=== PATIENT | male | born 1955 | race Caucasian/White ===

== ENCOUNTER 2018-11-02 16:33 | Inpatient (IN) | payer MEDICAID ==
[~2018-11-02] VITALS: Ht 188 cm; Wt 148.0 kg
[2018-11-02] MEDS ORDERED: ASPI-817 PO (17:47)
[2018-11-02] MEDS ORDERED: ONDANSETRON 4 MG INJ IV PRN (18:30)
[2018-11-02] MEDS ORDERED: ACETAMINOPHEN 325 MG TAB PO PRN ×2 (18:30→20:00)
[2018-11-02] MEDS ORDERED: ASPIRIN 325 MG TAB PO ONE (18:30)
--- NOTE | 2018-11-02 18:52 | ERD ---
ER Documentation Chief Complaint Chief Complaint headache x3 days, slow to understand & follow iinstructions HPI Patient is a 63-year-old male with cardiac disease who presents with confusion. Please note the history and physical exam is limited secondary to the patient's confusion and memory of what happened. The patient said that he started with a headache on Friday night and has had word finding difficulty since. His friend says that this is true. He is moving all 4 extremities. He has no slurred speech. He has had no treatment as of yet. He does not currently have a primary doctor. ROS All systems reviewed and are negative except as per history of present illness. Medications Home Meds Reported Medications Aspirin* (Aspirin* EC) 81 Mg Tablet.dr, 81 MG PO DAILY, TAB NEEDED 11/02/18 Allergies Allergies: Coded Allergies: No Known Allergy (Unverified , 11/02/18) PMhx/Soc Positive for coronary artery disease FmHx Family History: diabetes Physical Exam Vitals Vital Signs Date Temp Pulse Resp B/P (MAP) Pulse Ox O2 O2 Flow FiO2 Time Delivery Rate 11/02/18 98.5 88 18 186/94 98 16:44 (124) Physical Exam Const: No acute distress Head: Atraumatic Eyes: Normal Conjunctiva ENT: Normal External Ears, Nose and Mouth. Neck: Full range of motion. No meningismus. Resp: Clear to auscultation bilaterally Cardio: Regular rate and rhythm, no murmurs Abd: Soft, non tender, non distended. Normal bowel sounds Skin: No petechiae or rashes Back: No midline or flank tenderness Ext: No cyanosis, or edema Neur: Awake and alert, word finding difficulty but no slurred speech, strength is 5 out of 5 in all 4 extremities, cranial nerves II through XII are intact Result Diagram: 11/02/18 1706 11/02/18 1706 Results 24 hrs Laboratory Tests Test 11/02/18 17:06 11/02/18 17:30 White Blood Count 8.5 10^3/ul Red Blood Count 5.23 10^6/ul Hemoglobin 15.3 g/dl Hematocrit 46.6 % Mean Corpuscular Volume 89.1 fl Mean Corpuscular Hemoglobin 29.3 pg Mean Corpuscular Hemoglobin Concent 32.8 g/dl Red Cell Distribution Width 12.0 % Platelet Count 223 10^3/UL Mean Platelet Volume 9.2 fl Immature Granulocytes % 0.500 % Neutrophils % 54.2 % Lymphocytes % 31.1 % Monocytes % 10.0 % Eosinophils % 3.0 % Basophils % 1.2 % Nucleated Red Blood Cells % 0.0 /100WBC Immature Granulocytes # 0.040 10^3/ul Neutrophils # 4.6 10^3/ul Lymphocytes # 2.6 10^3/ul Monocytes # 0.9 10^3/ul Eosinophils # 0.3 10^3/ul Basophils # 0.1 10^3/ul Nucleated Red Blood Cells # 0.0 10^3/ul Prothrombin Time 13.2 Sec Prothrombin Time Ratio 1.0 INR International Normalized Ratio 0.99 Activated Partial Thromboplast Time 26.1 Sec Sodium Level 137 mmol/L Potassium Level 4.2 mmol/L Chloride Level 103 mmol/L Carbon Dioxide Level 26 mmol/L Anion Gap 8 Blood Urea Nitrogen 13 mg/dl Creatinine 0.80 mg/dl Est Glomerular Filtrat Rate mL/min > 60 mL/min Glucose Level 301 mg/dl Hemoglobin A1c 12.5 % Calcium Level 9.3 mg/dl Troponin I < 0.012 ng/ml Triglycerides Level 134 mg/dl Cholesterol Level 179 mg/dl LDL Cholesterol, Calculated 111 mg/dl HDL Cholesterol 41 mg/dl Cholesterol/HDL Ratio 4.3 RATIO Urine Color LISA Urine Clarity SLIGHTLY CLOUDY Urine pH 5.0 Urine Specific [place] 1.029 Urine Ketones TRACE mg/dL Urine Nitrite NEGATIVE mg/dL Urine Bilirubin NEGATIVE mg/dL Urine Urobilinogen NEGATIVE mg/dL Urine Leukocyte Esterase NEGATIVE Indra/ul Urine Microscopic RBC 3 /HPF Urine Microscopic WBC 7 /HPF Urine Squamous Epithelial Cells FEW /HPF Urine Bacteria FEW /HPF Urine Mucus MANY /HPF Urine Hemoglobin NEGATIVE mg/dL Urine Glucose 3+ mg/dL Urine Total Protein 2+ mg/dl Current Medications Medications Dose Sig/Sherly Start Time Status Last (Trade) Ordered Route PRN Stop Time Admin Dose Reason Admin Aspirin 325 mg ONCE ONCE 11/02/18 DC 11/02/18 (Aspirin) PO 18:30 18:43 11/02/18 18:31 Ondansetron 4 mg ER BRIDGE 11/02/18 HCl (Zofran PRN IV 18:30 Inj) NAUSEA/VOMITI 11/03/18 18:29 NG 650 mg ER BRIDGE 11/02/18 Acetaminophen PRN PO 18:30 (Tylenol .MILD PAIN 11/03/18 18:29 Tab) 1-3 OR TEMP Procedures/MDM CT brain shows stroke per radiology. Chest x-ray read by radiology. EKG read by me: Rate/Rhythm: Regular rate and rhythm at a normal rate Intervals: Normal Impression: No evidence of ischemia or arrhythmia Smoking Cessation Therapy: Pt. was lectured for greater than 3 minutes on the health risks of continued smoking and the benefits of cessation. Patient is a 63-year-old male presents with word finding difficulties. I was concerned for acute stroke. The patient is outside window for TPA or mechanical retrieval as the symptoms started 3 days ago on Friday. The patient had a CT scan which showed stroke. The patient will be given aspirin after he passes a swallow evaluation and NIH stroke scale was done by nursing. The patient will be admitted to the care of Dr. Castaneda to a telemetry bed. Departure Diagnosis: Primary Impression: Stroke CVA mechanism: unspecified Qualified Codes: I63.9 - Cerebral infarction, unspecified Additional Impression: Headache Headache type: unspecified Headache chronicity pattern: acute headache Intractability: not intractable Qualified Codes: R51 - Headache Condition: Serious RAQUEL RICO MD Nov 02, 2018 18:52
[2018-11-02] MEDS ORDERED: ONDANSETRON 4 MG TAB PO PRN (20:00)
[2018-11-02] MEDS ORDERED: DOCUSATE SODIUM 100 MG CAP PO PRN (20:00)
[2018-11-02] MEDS ORDERED: LISINOPRIL 20 MG TAB PO ONE (20:00)
[2018-11-02] MEDS ORDERED: BISACODYL (EC) 5 MG TAB PO PRN (20:00)
[2018-11-02] MEDS ORDERED: INSULIN GLARGINE [LANTus] (100 UNITS/ML) SYG SC ONE (20:00)
[2018-11-02] MEDS ORDERED: NACL 0.9% 3 ML SYG IV SCH (20:00)
[2018-11-02] MEDS: ATORVASTATIN 80 MG TAB PO SCH (21:20)
--- NOTE | 2018-11-02 22:29 | HP ---
Date/Time of Note Date/Time of Note DATE: 11/02/18 TIME: 22:28 Assessment/Plan VTE Prophylaxis SCD applied (from Nsg): Yes Pharmacological prophylaxis: NA/contraindicated Pharm contraindication: low risk/ambulating Assessment/Plan Hospital Course This is a 63-year-old male being admitted to the telemetry floor for: #1 subacute CVA:Subacute appearing left temporal - parietal nonhemorrhagic infarct with slight mass effect on the left lateral ventricle. Patient given aspirin, continue aspirin. Neurochecks every 4 hours. Given that the symptoms have occurred more than 24 hours ago we will control patient's blood pressure, will start the patient on lisinopril given his concurrent diabetes. Monitor patient blood pressures. Hemoglobin A1c is 12.5. Start the patient on high- dose statin. PT OT speech evaluation. Bedside swallow eval, carbohydrate diet if passes swallow eval. Will check the MRI of the brain and MRA of the head neck. Echocardiogram with bubble study. Check lipid panel, TSH consult maureen rology . Urine drug screen negative. #2 uncontrolled diabetes mellitus: The patient has hemoglobin A1c of 12.5. Will initiate weight-based moderate dosing of Lantus along with insulin sliding scale. Will start lisinopril patient's concurrent elevated blood pressures and likely hypertension. Metformin initiation likely prior to discharge. #3 elevated blood pressures: Likely underlying untreated hypertension. We will initiate the patient on lisinopril, PRN hydralazine. Monitor blood pressures. No need for permissive hypertension at the current time given the patient's symptoms greater than 24 hours. #4 morbid obesity: Hemoglobin A1c 12.5, check lipid panel, TSH #5 DVT GI prophylaxis: SCDs, no GI prophylaxis indicated Further treatment strategy will be implemented as per the clinical course. Result Diagram: 11/02/18 1706 11/02/18 1706 Results 24hrs Laboratory Tests Test 11/02/18 17:06 11/02/18 17:30 11/02/18 18:53 11/02/18 21:59 White Blood Count 8.5 Red Blood Count 5.23 Hemoglobin 15.3 Hematocrit 46.6 Mean Corpuscular 89.1 Volume Mean Corpuscular 29.3 Hemoglobin Mean Corpuscular 32.8 Hemoglobin Concen t Red Cell 12.0 Distribution Width Platelet Count 223 Mean Platelet 9.2 Volume Immature 0.500 H Granulocytes % Neutrophils % 54.2 Lymphocytes % 31.1 Monocytes % 10.0 Eosinophils % 3.0 Basophils % 1.2 Nucleated Red 0.0 Blood Cells % Immature 0.040 H Granulocytes # Neutrophils # 4.6 Lymphocytes # 2.6 Monocytes # 0.9 Eosinophils # 0.3 Basophils # 0.1 Nucleated Red 0.0 Blood Cells # Prothrombin Time 13.2 Prothrombin Time 1.0 Ratio INR International 0.99 Normalized Ratio Activated 26.1 Partial Thrombopl ast Time Sodium Level 137 Potassium Level 4.2 Chloride Level 103 Carbon Dioxide 26 Level Anion Gap 8 Blood Urea 13 Nitrogen Creatinine 0.80 Est Glomerular > 60 Filtrat Rate mL/min Glucose Level 301 H Hemoglobin A1c 12.5 H Calcium Level 9.3 Troponin I < 0.012 Triglycerides 134 Level Cholesterol Level 179 LDL Cholesterol, 111 Calculated HDL Cholesterol 41 Cholesterol/HDL 4.3 Ratio Urine Color LISA Urine Clarity SLIGHTLY CLOUDY A Urine pH 5.0 Urine Specific 1.029 [place] Urine Ketones TRACE A Urine Nitrite NEGATIVE Urine Bilirubin NEGATIVE Urine NEGATIVE Urobilinogen Urine Leukocyte NEGATIVE Esterase Urine Microscopic 3 RBC Urine Microscopic 7 H WBC Urine Squamous FEW Epithelial Cells Urine Bacteria FEW A Urine Mucus MANY A Urine Hemoglobin NEGATIVE Urine Glucose 3+ H Urine Total 2+ H Protein Urine Opiates NEGATIVE Screen Urine NEGATIVE Barbiturates Urine NEGATIVE Amphetamines Screen Urine NEGATIVE Benzodiazepines Screen Urine Cocaine NEGATIVE Screen Urine NEGATIVE Cannabinoids Bedside Glucose 301 H 265 H HPI/ROS Admit Date/Time Admit Date/Time Hx of Present Illness Chief complaint: Confusion, difficulty with speech Following history was obtained from the ED physician documentation, the RN and partially from the patient is a patient himself was not able to fully make sense of what he was seen. This is a 63-year-old male with cardiac disease who presents with confusion. The patient said that he started with a headache on Friday night and has had word finding difficulty since. His friend also presented with him to the ER who also stated that this was true. Patient is seen moving all 4 extremities, he does not display any slurred speech however his speech comprehension is affected. He is alert and oriented x2, he is able to state his name and his birthdate though he is slow to give these answers. Allergies: NKDA Medications: Aspirin ROS Const: As per HPI Eyes : No pain discharge or redness or change in visual acuity ENT: No pain, sore throat, congestion, congestion, dysphagia or discharge Respiratory: No shortness of breath, cough, sputum, wheezing, or pleuritic pain Cardiovascular: No chest pain, palpitation, PND, or edema GI : no change in appetite, abdominal pain, nausea, vomiting, diarrhea, constipation, or change in the color his stool Genitourinary: No dysuria, hematuria, flank pain , discharge or CVA tenderness Musculoskeletal: No joint pain, back pain, neck pain, restricted range of motion in neck or joints Skin: No rash, bruising or hives Neuro: As per HPI Endocrine: No polyuria, polydipsia, temperature intolerance Psych: No hallucination, depression, anxiety or suicidal ideation PMH/Family/Social Past Medical History Coronary artery disease Medications Current Medications IV Flush (NS 3 ml) 3 ml PER PROTOCOL IV ; Start 11/02/18 at 20:00 Ondansetron HCl (Zofran Tab) 4 mg Q6H PRN PO NAUSEA/VOMITING; Start 11/02/18 at 20:00 Acetaminophen (Tylenol Tab) 650 mg Q6H PRN PO .PAIN 1-3 OR TEMP; Start 11/02/18 at 20:00 Docusate Sodium (Colace) 100 mg Q12H PRN PO .CONSTIPATION; Start 11/02/18 at 20:00 Bisacodyl (Dulcolax) 5 mg DAILY PRN PO .CONSTIPATION; Start 11/02/18 at 20:00 Atorvastatin Calcium (Lipitor) 80 mg HS PO Last administered on 11/02/18at 21: 20; Admin Dose 80 MG; Start 11/02/18 at 21:00 Lisinopril (Zestril) 20 mg DAILY PO ; Start 11/03/18 at 09:00 Insulin Glargine (Lantus) 29 units DAILY@0800 SC ; Start 11/03/18 at 20:00 Coded Allergies: No Known Allergy (Unverified , 11/02/18) Past Surgical History Cardiac stent x3 Family History Significant Family History: no pertinent family hx Social History Alcohol Use: none Smoking Status: Current some day smoker Drug Use: none Exam/Review of Systems Vital Signs Vitals Vital Signs Date Temp Pulse Resp B/P (MAP) Pulse Ox O2 O2 Flow FiO2 Time Delivery Rate 11/02/18 98.5 88 18 186/94 98 16:44 (124) Exam Exam General: Patient is a pleasant male currently lying in bed he does not appear to be in any acute distress, he does appear to be slow in giving responses as he is trying to find the words to say. HEENT: Atraumatic, normocephalic. The pupils are equal, round and reactive. Extraocular motor are intact Neck: Supple with full range of motion. No rigidity or meningismus Chest: Nontender Lungs: Clear to auscultation bilaterally no crackles rales or wheezing Heart: Normal S1-S2, Regular rhythm and rate. No murmur, S3, or S4 Abdomen: Morbidly obese, soft , nontender, nondistended , bowel sounds are present. No guarding no rebound tenderness , No masses or organomegaly. No costovertebral temporal angle mass Extremities: Normal to inspection, no edema no cyanosis Neurologic: Alert and oriented x2, speech is clear but impaired comprehension, cranial nerves II through XII intact, strength 5 out of 5 in bilateral upper and lower extremities Additional Comments PROCEDURE: CT Brain without IV contrast. CLINICAL INDICATION: Headache for 3 days. TECHNIQUE: A CT of the brain was performed on a multislice detector CT scanner utilizing axial sections from the skull base through the vertex without contrast. Images were reviewed on a high-resolution PACS workstation. Exam CTDlvol = 39 mGy-cm and DLP = 714 mGy-cm. One of the following 3 dose reduc tion techniques were used: Automated exposure control; adjustment of the mA and/or kV according to patient size; or use of iterative reconstruction technique. DICOM images are available. COMPARISON: None available FINDINGS: There is abnormal hypodensity and effacement of sulci involving the posterior left temporal parietal lobe consistent with a subacute non-hemorrhagic infarct. There is slight mass effect on the left lateral ventricle without midline shift. There is otherwise age appropriate central and peripheral atrophy. There is no midline shift. There is no intracranial hemorrhage or abnormal extra-axial fluid collection. Visualized paranasal sinuses are clear. IMPRESSION: Subacute appearing left temporal - parietal nonhemorrhagic infarct with slight mass effect on the left lateral ventricle. RP physician senior advocate requested to call report by the undersigned at 18:10. RPTAT: HMVK .Isidoro Perez MD, MD Date Time Electronically viewed and signed by .Isidoro Perez MD, MD on 11/02/2018 18:10 .K/ CC: RAQUEL RICO MD [phone] PROCEDURE: XR Chest. CLINICAL INDICATION: Possible stroke TECHNIQUE: Single frontal view of the chest was obtained COMPARISON: None FINDINGS: There is moderate elevation of the left hemidiaphragm with left lower lung volume loss. Evaluation of the size of the cardiac silhouette is limited due to poor visualization of the left heart border. There is appearance of mild enlargement of cardiac silhouette. Mild tortuosity of the thoracic aorta is apparent. Interstitial appearing and increased densities in lower lungs could represent atelectasis, pulmonary edema or other infiltrates. There is appearance of mild vascular prominence. There is no pleural effusion or pneumothorax. IMPRESSION: There is moderate elevation of the left hemidiaphragm with left lower lung volum e loss. Evaluation of the size of the cardiac silhouette is limited due to poor visualization of the left heart border. There is appearance of mild enlargement of cardiac silhouette. Mild tortuosity of the thoracic aorta is apparent. Interstitial appearing and increased densities in lower lungs could represent atelectasis, pulmonary edema or other infiltrates. There is appearance of mild vascular prominence. RPTAT: HJES .Jamey Corona MD, MD Date Time Electronically viewed and signed by .Jamey Corona MD, MD on 11/02/2018 17:28 .S/ CC: RAQUEL RICO MD [id number] EKG read by me: Rate/Rhythm: Regular rate and rhythm at a normal rate Intervals: Normal Impression: No evidence of ischemia or arrhythmia STACI SANTOS Nov 02, 2018 22:29
[2018-11-02] MEDS ORDERED: hydrALAzine 20 MG INJ IV PRN (22:30)
[2018-11-02] MEDS ORDERED: GLUCOSE GEL 15 GRAM TUBE PO PRN ×2 (23:00)
[2018-11-02] MEDS ORDERED: GLUCOSE GEL 15 GRAM TUBE BUCCAL PRN (23:00)
[2018-11-02] MEDS ORDERED: GLUCAGON 1 MG INJ IM PRN (23:00)
[2018-11-02] MEDS ORDERED: DEXTROSE 50% 50 ML SYRINGE IV PRN ×2 (23:00)
[2018-11-03] VITALS (12 sets, daily range): BP systolic 116–145; BP diastolic 65–82; PULSE 73–81; RESP 18–20; Ht 188 cm; Wt 148.0 kg
[2018-11-03] MEDS: ACCU-CHEK XX SCH (02:00)
[2018-11-03] MEDS ORDERED: INSULIN ASPART [NOVOLOG] 3 ML PEN SC SCH (08:00)
[2018-11-03] MEDS: ASPIRIN (EC) 81 MG TAB PO SCH (08:36)
[2018-11-03] MEDS: LISINOPRIL 20 MG TAB PO SCH (08:36)
--- NOTE | 2018-11-03 09:26 | PN ---
Date/Time of Note Date/Time of Note DATE: 11/03/18 TIME: 09:25 Assessment/Plan VTE Prophylaxis SCD applied (from Nsg): Yes Pharmacological prophylaxis: NA/contraindicated Pharm contraindication: low risk/ambulating Lines/Catheters IV Catheter Type (from Nrsg): Saline Lock Assessment/Plan Hospital Course SUBJECTIVE: Patient lying in bed, reports improved headache, having still difficulty finding words. OBJECTIVE: Vital signs-see below PHYSICAL EXAM: Constitutional: Obese male,not in acute distress. HEENT: Head atraumatic and normocephalic. Eyes: Extraocular muscles intact. Anicteric sclerae. Pupils equal bilaterally, reactive to light. NECK: Supple without lymph node. CHEST: Clear and good breath sounds equally. No wheezing. No rhonchi. HEART: S1, S2. Regular rate and rhythm. ABDOMEN: Protuberant/non tender with no rebound tenderness. Bowel sounds were present. EXTREMITIES: No cyanosis, clubbing or edema. NEUROLOGIC: Speech:having difficulty finding words with mild dysarthria. Alert and oriented x3. Motor strength 5 out of 5 on all 4 extremities. No sensory deficit. PSYCHOSOCIAL: No signs of depression. INTEGUMENTARY: No open wounds. ASSESSMENT AND PLAN: 63-year-old morbidly obese male, with no PCP checkups, admitted with sudden onset of severe headache, difficulty finding words, found to have CVA.... Acute CVA -Pending MRI/MRA/Echo studies. -Aspirin/high intensity statin -PT/ST/rehab -Follow-up neurology recommendations New onset type 2 diabetes A1c 12.5 -Uptitrate Lantus with addition of bolus insulin to control hyperglycemia. -Carbohydrate controlled diet, Accu-Cheks/ISS -DM education Essential hypertension -Appropriately controlled with EUGENIE inhibitors Morbid obesity with BMI 41.9 -Weight reduction advised DVT prophylaxis: SCDs PUD prophylaxis: Pepcid Disposition: Continue current management. Follow-up studies ordered and neurology recommendations. Continue rehab. Patient was seen in collaboration with Result Diagram: 11/03/18 0544 11/03/18 0544 Results 24hrs Laboratory Tests Test 11/02/18 17:06 11/02/18 17:30 11/02/18 18:53 11/02/18 21:59 White Blood Count 8.5 Red Blood Count 5.23 Hemoglobin 15.3 Hematocrit 46.6 Mean Corpuscular 89.1 Volume Mean Corpuscular 29.3 Hemoglobin Mean Corpuscular 32.8 Hemoglobin Concen t Red Cell 12.0 Distribution Width Platelet Count 223 Mean Platelet 9.2 Volume Immature 0.500 H Granulocytes % Neutrophils % 54.2 Lymphocytes % 31.1 Monocytes % 10.0 Eosinophils % 3.0 Basophils % 1.2 Nucleated Red 0.0 Blood Cells % Immature 0.040 H Granulocytes # Neutrophils # 4.6 Lymphocytes # 2.6 Monocytes # 0.9 Eosinophils # 0.3 Basophils # 0.1 Nucleated Red 0.0 Blood Cells # Prothrombin Time 13.2 Prothrombin Time 1.0 Ratio INR International 0.99 Normalized Ratio Activated 26.1 Partial Thrombopl ast Time Sodium Level 137 Potassium Level 4.2 Chloride Level 103 Carbon Dioxide 26 Level Anion Gap 8 Blood Urea 13 Nitrogen Creatinine 0.80 Est Glomerular > 60 Filtrat Rate mL/min Glucose Level 301 H Hemoglobin A1c 12.5 H Calcium Level 9.3 Troponin I < 0.012 Triglycerides 134 Level Cholesterol Level 179 LDL Cholesterol, 111 Calculated HDL Cholesterol 41 Cholesterol/HDL 4.3 Ratio Urine Color LISA Urine Clarity SLIGHTLY CLOUDY A Urine pH 5.0 Urine Specific 1.029 [place] Urine Ketones TRACE A Urine Nitrite NEGATIVE Urine Bilirubin NEGATIVE Urine NEGATIVE Urobilinogen Urine Leukocyte NEGATIVE Esterase Urine Microscopic 3 RBC Urine Microscopic 7 H WBC Urine Squamous FEW Epithelial Cells Urine Bacteria FEW A Urine Mucus MANY A Urine Hemoglobin NEGATIVE Urine Glucose 3+ H Urine Total 2+ H Protein Urine Opiates NEGATIVE Screen Urine NEGATIVE Barbiturates Urine NEGATIVE Amphetamines Screen Urine NEGATIVE Benzodiazepines Screen Urine Cocaine NEGATIVE Screen Urine NEGATIVE Cannabinoids Bedside Glucose 301 H 265 H Test 11/03/18 05:44 11/03/18 08:03 White Blood Count 8.1 Red Blood Count 4.98 Hemoglobin 14.7 Hematocrit 44.7 Mean Corpuscular 89.8 Volume Mean Corpuscular 29.5 Hemoglobin Mean Corpuscular 32.9 Hemoglobin Concen t Red Cell 12.2 Distribution Width Platelet Count 214 Mean Platelet 9.2 Volume Immature 0.500 H Granulocytes % Neutrophils % 49.8 Lymphocytes % 34.4 Monocytes % 10.5 Eosinophils % 3.6 Basophils % 1.2 Nucleated Red 0.0 Blood Cells % Immature 0.040 H Granulocytes # Neutrophils # 4.0 Lymphocytes # 2.8 Monocytes # 0.9 Eosinophils # 0.3 Basophils # 0.1 Nucleated Red 0.0 Blood Cells # Sodium Level 139 Potassium Level 3.9 Chloride Level 104 Carbon Dioxide 25 Level Anion Gap 10 Blood Urea 13 Nitrogen Creatinine 0.77 Est Glomerular > 60 Filtrat Rate mL/min Glucose Level 196 # Calcium Level 9.2 Magnesium Level 2.0 Total Bilirubin 0.6 Direct Bilirubin 0.00 Indirect 0.6 Bilirubin Aspartate Amino 23 Transf (AST/SGOT) Alanine 34 Aminotransferase (ALT/SGPT) Alkaline 102 Phosphatase Total Protein 7.1 Albumin 3.6 Globulin 3.50 H Albumin/Globulin 1.02 Ratio Thyroid 2.000 Stimulating Hormone (TSH) Bedside Glucose 206 Exam/Review of Systems Exam Vitals Vital Signs Date Temp Pulse Resp B/P (MAP) Pulse Ox O2 O2 Flow FiO2 Time Delivery Rate 11/03/18 98.1 73 18 131/82 95 07:24 (98) 11/02/18 Room Air 23:30 Intake and Output 11/02/18 11/02/18 11/03/18 1515:00 23:00 07:00 IntakeIntake Total 400 ml BalanceBalance 400 ml Results Results 24hrs Laboratory Tests Test 11/02/18 17:06 11/02/18 17:30 11/02/18 18:53 11/02/18 21:59 White Blood Count 8.5 Red Blood Count 5.23 Hemoglobin 15.3 Hematocrit 46.6 Mean Corpuscular 89.1 Volume Mean Corpuscular 29.3 Hemoglobin Mean Corpuscular 32.8 Hemoglobin Concen t Red Cell 12.0 Distribution Width Platelet Count 223 Mean Platelet 9.2 Volume Immature 0.500 H Granulocytes % Neutrophils % 54.2 Lymphocytes % 31.1 Monocytes % 10.0 Eosinophils % 3.0 Basophils % 1.2 Nucleated Red 0.0 Blood Cells % Immature 0.040 H Granulocytes # Neutrophils # 4.6 Lymphocytes # 2.6 Monocytes # 0.9 Eosinophils # 0.3 Basophils # 0.1 Nucleated Red 0.0 Blood Cells # Prothrombin Time 13.2 Prothrombin Time 1.0 Ratio INR International 0.99 Normalized Ratio Activated 26.1 Partial Thrombopl ast Time Sodium Level 137 Potassium Level 4.2 Chloride Level 103 Carbon Dioxide 26 Level Anion Gap 8 Blood Urea 13 Nitrogen Creatinine 0.80 Est Glomerular > 60 Filtrat Rate mL/min Glucose Level 301 H Hemoglobin A1c 12.5 H Calcium Level 9.3 Troponin I < 0.012 Triglycerides 134 Level Cholesterol Level 179 LDL Cholesterol, 111 Calculated HDL Cholesterol 41 Cholesterol/HDL 4.3 Ratio Urine Color LISA Urine Clarity SLIGHTLY CLOUDY A Urine pH 5.0 Urine Specific 1.029 [place] Urine Ketones TRACE A Urine Nitrite NEGATIVE Urine Bilirubin NEGATIVE Urine NEGATIVE Urobilinogen Urine Leukocyte NEGATIVE Esterase Urine Microscopic 3 RBC Urine Microscopic 7 H WBC Urine Squamous FEW Epithelial Cells Urine Bacteria FEW A Urine Mucus MANY A Urine Hemoglobin NEGATIVE Urine Glucose 3+ H Urine Total 2+ H Protein Urine Opiates NEGATIVE Screen Urine NEGATIVE Barbiturates Urine NEGATIVE Amphetamines Screen Urine NEGATIVE Benzodiazepines Screen Urine Cocaine NEGATIVE Screen Urine NEGATIVE Cannabinoids Bedside Glucose 301 H 265 H Test 11/03/18 05:44 11/03/18 08:03 White Blood Count 8.1 Red Blood Count 4.98 Hemoglobin 14.7 Hematocrit 44.7 Mean Corpuscular 89.8 Volume Mean Corpuscular 29.5 Hemoglobin Mean Corpuscular 32.9 Hemoglobin Concen t Red Cell 12.2 Distribution Width Platelet Count 214 Mean Platelet 9.2 Volume Immature 0.500 H Granulocytes % Neutrophils % 49.8 Lymphocytes % 34.4 Monocytes % 10.5 Eosinophils % 3.6 Basophils % 1.2 Nucleated Red 0.0 Blood Cells % Immature 0.040 H Granulocytes # Neutrophils # 4.0 Lymphocytes # 2.8 Monocytes # 0.9 Eosinophils # 0.3 Basophils # 0.1 Nucleated Red 0.0 Blood Cells # Sodium Level 139 Potassium Level 3.9 Chloride Level 104 Carbon Dioxide 25 Level Anion Gap 10 Blood Urea 13 Nitrogen Creatinine 0.77 Est Glomerular > 60 Filtrat Rate mL/min Glucose Level 196 # Calcium Level 9.2 Magnesium Level 2.0 Total Bilirubin 0.6 Direct Bilirubin 0.00 Indirect 0.6 Bilirubin Aspartate Amino 23 Transf (AST/SGOT) Alanine 34 Aminotransferase (ALT/SGPT) Alkaline 102 Phosphatase Total Protein 7.1 Albumin 3.6 Globulin 3.50 H Albumin/Globulin 1.02 Ratio Thyroid 2.000 Stimulating Hormone (TSH) Bedside Glucose 206 Medications Medication Current Medications IV Flush (NS 3 ml) 3 ml PER PROTOCOL IV ; Start 11/02/18 at 20:00 Ondansetron HCl (Zofran Tab) 4 mg Q6H PRN PO NAUSEA/VOMITING; Start 11/02/18 at 20:00 Acetaminophen (Tylenol Tab) 650 mg Q6H PRN PO .PAIN 1-3 OR TEMP; Start 11/02/18 at 20:00 Docusate Sodium (Colace) 100 mg Q12H PRN PO .CONSTIPATION; Start 11/02/18 at 20:00 Bisacodyl (Dulcolax) 5 mg DAILY PRN PO .CONSTIPATION; Start 11/02/18 at 20:00 Atorvastatin Calcium (Lipitor) 80 mg HS PO Last administered on 11/02/18at 21:20; Admin Dose 80 MG; Start 11/02/18 at 21:00 Lisinopril (Zestril) 20 mg DAILY PO Last administered on 11/03/18at 08:36; Admin Dose 20 MG; Start 11/03/18 at 09:00 Hydralazine HCl (Apresoline) 10 mg Q4H PRN IV ELEVATED BLOOD PRESSURE; Start 11/02/18 at 22:30 Diagnostic Test (Pha) (Accu-Chek) 1 ea 02 XX ; Start 11/03/18 at 02:00 Miscellaneous Information 1 ea NOTE XX ; Start 11/02/18 at 23:00 Glucose (Glutose) 15 gm Q15M PRN PO DECREASED GLUCOSE; Start 11/02/18 at 23:00 Glucose (Glutose) 22.5 gm Q15M PRN PO DECREASED GLUCOSE; Start 11/02/18 at 23:00 Dextrose (D50w Syringe) 25 ml Q15M PRN IV DECREASED GLUCOSE; Start 11/02/18 at 23:00 Dextrose (D50w Syringe) 50 ml Q15M PRN IV DECREASED GLUCOSE; Start 11/02/18 at 23:00 Glucagon (Glucagen) 1 mg Q15M PRN IM DECREASED GLUCOSE; Start 11/02/18 at 23:00 Glucose (Glutose) 15 gm Q15M PRN BUCCAL DECREASED GLUCOSE; Start 11/02/18 at 23:00 Aspirin (Halfprin) 81 mg DAILY PO Last administered on 11/03/18at 08:36; Admin Dose 81 MG; Start 11/03/18 at 09:00 Insulin Glargine (Lantus) 35 units DAILY@0800 SC ; Start 11/03/18 at 20:00; Status UNV Insulin Glargine (Lantus) 6 units ONCE ONCE SC ; Start 11/03/18 at 09:30; Stop 11/03/18 at 09:31; Status UNV Insulin Aspart (Novolog Insulin Pen) 10 unit WITH MEALS SC ; Start 11/03/18 at 12:00; Status UNV Insulin Aspart (Novolog Insulin Pen) NOVOLOG *MILD* ALGORITHM WITH MEALS BEDTIME SC ; Start 11/03/18 at 12:00; Status UNV JEAN-CLAUDE PRATHER NP Nov 03, 2018 09:26
[2018-11-03] MEDS ORDERED: INSULIN GLARGINE [LANTus] (100 UNITS/ML) SYG SC ONE (10:30)
--- NOTE | 2018-11-03 12:14 | CONS ---
Assessment/Plan Assessment/Plan Hospital Course 63 yo M with multiple cerebrovascular risk factors who presents for evaluation of ams and difficulty with word finding x several days... for which neurology is consulted. HCT confirmed an acute-appearing L temporoparietal infarct....for which neurology is consulted.. LDL 111 A1C 12.5 UDS neg P: Await MRI/MRA H/N for further characterization Await echo Add ESR, RPR Agree w/ ASA/Lipitor daily for secondary stroke prevention for now Continued medical management and supportive care per primary ST as necessary Will follow clinically Consultation Date/Type/Reason Admit Date/Time Type of Consult Neurology Reason for Consultation stroke Requesting Provider: STACI SANTOS Date/Time of Note DATE: 11/03/18 TIME: 12:14 Hx of Present Illness 63 yo M with hx of HTN, smoking, cardiac stent placement and other comorbidities who presented to the ED for evaluation of ams and difficulty with word finding. Hx was obtained from pt and chart review. He endorses continued difficulty with word finding though states that it has improved. Currently denies headache, weakness, lethargy, confusion, paresthesias, vision changes, slurred speech or difficulty with coordination. He confirms the story below: Hx of Present Illness Chief complaint: Confusion, difficulty with speech Following history was obtained from the ED physician documentation, the RN and partially from the patient is a patient himself was not able to fully make sense of what he was seen. This is a 63-year-old male with cardiac disease who presents with confusion. The patient said that he started with a headache on Friday night and has had word finding difficulty since. His friend also presented with him to the ER who also stated that this was true. Patient is seen moving all 4 extremities, he does not display any slurred speech however his speech comprehension is affected. He is alert and oriented x2, he is able to state his name and his birthdate though he is slow to give these answers. negative unless noted otherwise in HPI Exam/Review of Systems Exam Vitals Vital Signs Date Temp Pulse Resp B/P (MAP) Pulse Ox O2 O2 Flow FiO2 Time Delivery Rate 11/03/18 81 08:01 11/03/18 98.1 18 131/82 95 07:24 (98) 11/02/18 Room Air 23:30 Intake and Output 11/02/18 11/02/18 11/03/18 1515:00 23:00 07:00 IntakeIntake Total 400 ml BalanceBalance 400 ml Exam PE: Gen Appearance: No Apparent Distress HEENT: Normocephalic Cardiovascular: Regular rate Lungs: Clear bilaterally Abdomen: Soft Extremities: Dry NE: The patient was alert and oriented. Has some difficulty with word finding; able to name the TV, phone. Stated that the president's name was Betito. Fund of knowledge was adequate. Pupils were equal and reactive to light. There was no afferent pupillary defect. Visual mcmullen were normal. Funduscopic examination was limited. Extra-ocular movements were full. Ptosis was absent. There was no nystagmus. Facial sensation was normal. Face was symmetric with normal strength. Hearing was intact. Palate movements were normal. Neck strength was normal. There was normal tongue bulk and speed of movement. Tone was normal. Muscle bulk was normal. I did not see fasciculations. Arms and legs were strong. Vibration sensation was normal. Temperature and pinprick sensation was normal. Rapid alternating movements were normal. There was no dysmetria. There was no intention tremor. Gait was deferred due to bedrest. Arm and leg reflexes were 2+ and symmetric. Landeros's sign was absent. Plantar responses were flexor. Results Result Diagram: 11/03/18 0544 11/03/18 0544 Results 24hrs Laboratory Tests Test 11/02/18 17:06 11/02/18 17:30 11/02/18 18:53 11/02/18 21:59 White Blood Count 8.5 Red Blood Count 5.23 Hemoglobin 15.3 Hematocrit 46.6 Mean Corpuscular 89.1 Volume Mean Corpuscular 29.3 Hemoglobin Mean Corpuscular 32.8 Hemoglobin Concen t Red Cell 12.0 Distribution Width Platelet Count 223 Mean Platelet 9.2 Volume Immature 0.500 H Granulocytes % Neutrophils % 54.2 Lymphocytes % 31.1 Monocytes % 10.0 Eosinophils % 3.0 Basophils % 1.2 Nucleated Red 0.0 Blood Cells % Immature 0.040 H Granulocytes # Neutrophils # 4.6 Lymphocytes # 2.6 Monocytes # 0.9 Eosinophils # 0.3 Basophils # 0.1 Nucleated Red 0.0 Blood Cells # Prothrombin Time 13.2 Prothrombin Time 1.0 Ratio INR International 0.99 Normalized Ratio Activated 26.1 Partial Thrombopl ast Time Sodium Level 137 Potassium Level 4.2 Chloride Level 103 Carbon Dioxide 26 Level Anion Gap 8 Blood Urea 13 Nitrogen Creatinine 0.80 Est Glomerular > 60 Filtrat Rate mL/min Glucose Level 301 H Hemoglobin A1c 12.5 H Calcium Level 9.3 Troponin I < 0.012 Triglycerides 134 Level Cholesterol Level 179 LDL Cholesterol, 111 Calculated HDL Cholesterol 41 Cholesterol/HDL 4.3 Ratio Urine Color LISA Urine Clarity SLIGHTLY CLOUDY A Urine pH 5.0 Urine Specific 1.029 [place] Urine Ketones TRACE A Urine Nitrite NEGATIVE Urine Bilirubin NEGATIVE Urine NEGATIVE Urobilinogen Urine Leukocyte NEGATIVE Esterase Urine Microscopic 3 RBC Urine Microscopic 7 H WBC Urine Squamous FEW Epithelial Cells Urine Bacteria FEW A Urine Mucus MANY A Urine Hemoglobin NEGATIVE Urine Glucose 3+ H Urine Total 2+ H Protein Urine Opiates NEGATIVE Screen Urine NEGATIVE Barbiturates Urine NEGATIVE Amphetamines Screen Urine NEGATIVE Benzodiazepines Screen Urine Cocaine NEGATIVE Screen Urine NEGATIVE Cannabinoids Bedside Glucose 301 H 265 H Test 11/03/18 05:44 11/03/18 08:03 White Blood Count 8.1 Red Blood Count 4.98 Hemoglobin 14.7 Hematocrit 44.7 Mean Corpuscular 89.8 Volume Mean Corpuscular 29.5 Hemoglobin Mean Corpuscular 32.9 Hemoglobin Concen t Red Cell 12.2 Distribution Width Platelet Count 214 Mean Platelet 9.2 Volume Immature 0.500 H Granulocytes % Neutrophils % 49.8 Lymphocytes % 34.4 Monocytes % 10.5 Eosinophils % 3.6 Basophils % 1.2 Nucleated Red 0.0 Blood Cells % Immature 0.040 H Granulocytes # Neutrophils # 4.0 Lymphocytes # 2.8 Monocytes # 0.9 Eosinophils # 0.3 Basophils # 0.1 Nucleated Red 0.0 Blood Cells # Sodium Level 139 Potassium Level 3.9 Chloride Level 104 Carbon Dioxide 25 Level Anion Gap 10 Blood Urea 13 Nitrogen Creatinine 0.77 Est Glomerular > 60 Filtrat Rate mL/min Glucose Level 196 # Calcium Level 9.2 Magnesium Level 2.0 Total Bilirubin 0.6 Direct Bilirubin 0.00 Indirect 0.6 Bilirubin Aspartate Amino 23 Transf (AST/SGOT) Alanine 34 Aminotransferase (ALT/SGPT) Alkaline 102 Phosphatase Total Protein 7.1 Albumin 3.6 Globulin 3.50 H Albumin/Globulin 1.02 Ratio Thyroid 2.000 Stimulating Hormone (TSH) Bedside Glucose 206 Medications Medication Current Medications IV Flush (NS 3 ml) 3 ml PER PROTOCOL IV ; Start 11/02/18 at 20:00 Ondansetron HCl (Zofran Tab) 4 mg Q6H PRN PO NAUSEA/VOMITING; Start 11/02/18 at 20:00 Acetaminophen (Tylenol Tab) 650 mg Q6H PRN PO .PAIN 1-3 OR TEMP; Start 11/02/18 at 20:00 Docusate Sodium (Colace) 100 mg Q12H PRN PO .CONSTIPATION; Start 11/02/18 at 20 :00 Bisacodyl (Dulcolax) 5 mg DAILY PRN PO .CONSTIPATION; Start 11/02/18 at 20:00 Atorvastatin Calcium (Lipitor) 80 mg HS PO Last administered on 11/02/18at 21:20; Admin Dose 80 MG; Start 11/02/18 at 21:00 Lisinopril (Zestril) 20 mg DAILY PO Last administered on 11/03/18at 08:36; Admin Dose 20 MG; Start 11/03/18 at 09:00 Hydralazine HCl (Apresoline) 10 mg Q4H PRN IV ELEVATED BLOOD PRESSURE; Start 11/02/18 at 22:30 Diagnostic Test (Pha) (Accu-Chek) 1 ea 02 XX ; Start 11/03/18 at 02:00 Miscellaneous Information 1 ea NOTE XX ; Start 11/02/18 at 23:00 Glucose (Glutose) 15 gm Q15M PRN PO DECREASED GLUCOSE; Start 11/02/18 at 23:00 Glucose (Glutose) 22.5 gm Q15M PRN PO DECREASED GLUCOSE; Start 11/02/18 at 23:00 Dextrose (D50w Syringe) 25 ml Q15M PRN IV DECREASED GLUCOSE; Start 11/02/18 at 23:00 Dextrose (D50w Syringe) 50 ml Q15M PRN IV DECREASED GLUCOSE; Start 11/02/18 at 23:00 Glucagon (Glucagen) 1 mg Q15M PRN IM DECREASED GLUCOSE; Start 11/02/18 at 23:00 Glucose (Glutose) 15 gm Q15M PRN BUCCAL DECREASED GLUCOSE; Start 11/02/18 at 23:00 Aspirin (Halfprin) 81 mg DAILY PO Last administered on 11/03/18at 08:36; Admin Dose 81 MG; Start 11/03/18 at 09:00 Insulin Glargine (Lantus) 35 units DAILY@0800 SC ; Start 11/04/18 at 08:00 Insulin Aspart (Novolog Insulin Pen) 10 unit WITH MEALS SC ; Start 11/03/18 at 12:00 Insulin Aspart (Novolog Insulin Pen) NOVOLOG *MILD* ALGORITHM WITH MEALS BEDTIME SC ; Start 11/03/18 at 12:00 Past Medical History reviewed Home Meds Reported Medications Aspirin* (Aspirin* EC) 81 Mg Tablet.dr, 81 MG PO DAILY, TAB NEEDED 11/02/18 Medications Current Medications IV Flush (NS 3 ml) 3 ml PER PROTOCOL IV ; Start 11/02/18 at 20:00 Ondansetron HCl (Zofran Tab) 4 mg Q6H PRN PO NAUSEA/VOMITING; Start 11/02/18 at 20:00 Acetaminophen (Tylenol Tab) 650 mg Q6H PRN PO .PAIN 1-3 OR TEMP; Start 11/02/18 at 20:00 Docusate Sodium (Colace) 100 mg Q12H PRN PO .CONSTIPATION; Start 11/02/18 at 20:00 Bisacodyl (Dulcolax) 5 mg DAILY PRN PO .CONSTIPATION; Start 11/02/18 at 20:00 Atorvastatin Calcium (Lipitor) 80 mg HS PO Last administered on 11/02/18at 21:20; Admin Dose 80 MG; Start 11/02/18 at 21:00 Lisinopril (Zestril) 20 mg DAILY PO Last administered on 11/03/18at 08:36; Admin Dose 20 MG; Start 11/03/18 at 09:00 Hydralazine HCl (Apresoline) 10 mg Q4H PRN IV ELEVATED BLOOD PRESSURE; Start 11/02/18 at 22:30 Diagnostic Test (Pha) (Accu-Chek) 1 ea 02 XX ; Start 11/03/18 at 02:00 Miscellaneous Information 1 ea NOTE XX ; Start 11/02/18 at 23:00 Glucose (Glutose) 15 gm Q15M PRN PO DECREASED GLUCOSE; Start 11/02/18 at 23:00 Glucose (Glutose) 22.5 gm Q15M PRN PO DECREASED GLUCOSE; Start 11/02/18 at 23:00 Dextrose (D50w Syringe) 25 ml Q15M PRN IV DECREASED GLUCOSE; Start 11/02/18 at 23:00 Dextrose (D50w Syringe) 50 ml Q15M PRN IV DECREASED GLUCOSE; Start 11/02/18 at 23:00 Glucagon (Glucagen) 1 mg Q15M PRN IM DECREASED GLUCOSE; Start 11/02/18 at 23:00 Glucose (Glutose) 15 gm Q15M PRN BUCCAL DECREASED GLUCOSE; Start 11/02/18 at 23:00 Aspirin (Halfprin) 81 mg DAILY PO Last administered on 11/03/18at 08:36; Admin Dose 81 MG; Start 11/03/18 at 09:00 Insulin Glargine (Lantus) 35 units DAILY@0800 SC ; Start 11/04/18 at 08:00 Insulin Aspart (Novolog Insulin Pen) 10 unit WITH MEALS SC ; Start 11/03/18 at 12:00 Insulin Aspart (Novolog Insulin Pen) NOVOLOG *MILD* ALGORITHM WITH MEALS BEDTIME SC ; Start 11/03/18 at 12:00 Allergies: Coded Allergies: No Known Allergy (Unverified , 11/02/18) Past Surgical History reviewed Social History reviewed Alcohol Use: none Smoking Status: Current some day smoker Drug Use: none THIAGO CARRERA NP Nov 03, 2018 12:14 TONIE GORMAN Nov 03, 2018 19:22
[2018-11-03] MEDS: INSULIN ASPART [NOVOLOG] 3 ML PEN SC SCH ×5 (13:52→20:55)
--- NOTE | 2018-11-03 19:38 | RADRPT ---
Echocardiogram Report Patient Name: NAVDEEP YAPPatient ID: [id number] : 1955 (63y 9m)Study Date: 11/03/2018 11:57:08 AM Gender: MAccession #: [id number] Tech: Ralf Warner RDCS Location: [facility] Ref.Physician: STACI SANTOS Height(Cm): BSA: Weight(Kg): Quality: Technically Difficult StudyAccount #: Procedures: Echocardiographic Report: Transthoracic echocardiogram with complete 2D, M-Mode, and doppler examination. Indications: Cerebrovascular Accident. Measurements: 2D/M Mode Doppler Measurement Value Normal Range Measurement Value Normal Range LVIDd 2D 4.8 [ 4.2 - 5.8 ] cm AV Peak Eusebio 1.4 [ 100.0 - 170.0 ] cm/sec LVIDs 2D 2.9 [ 2.5 - 4.0 ] cm AV Peak PG 8.0 [ 2.0 - 9.0 ] mmHg LVPWd 2D 1.2 [ 0.6 - 1.0 ] cm LVOT Peak Eusebio 1.0 [ 70.0 - 110.0 ] cm/sec IVSd 2D 1.4 [ 0.6 - 1.0 ] cm LVOT Peak PG 4.0 [ 2.0 - 6.0 ] mmHg AoR Diam 2D 3.4 [ 2.6 - 3.4 ] cm MV E Peak Eusebio 0.9 [ 60.0 - 130.0 ] cm/sec EDV 2D 108.0 [ 62.0 - 150.0 ] ml MV A Peak Eusebio 0.9 [ 100.0 - 120.0 ] cm/sec ESV 2D 32.8 [ 21.0 - 61.0 ] ml MV E/A 1.1 [ 0.8 - 1.5 ] ratio EF 2D 69.6 [ 52.0 - 72.0 ] percent MV Decel Time 180 [ 104 - 258 ] msec LA Dimen 2D 3.3 [ 3.0 - 4.0 ] cm Lat E` Eusebio 0.1 [ 10.0 - 15.0 ] cm/sec Lateral E/E` 13.8 [ 1.0 - 2.0 ] ratio MV E/A 1.1 [ 0.8 - 1.5 ] ratio Findings: Left Ventricle: Normal left ventricular cavity size. Moderate concentric left ventricular hypertrophy. Ejection fraction is visually estimated at 35-40 %. Tissue Doppler/Mitral Doppler indices are consistent with impaired relaxation (Stage I diastolic dysfunction). Multiple segmental wall motion abnormalities. These segments of the LV are hypokinetic mid anterior segment, apical anterior segment, inferior apex segment, apex and apical septum. Right Ventricle: Normal right ventricular size. Normal right ventricular systolic function. Left Atrium: The left atrium is normal in size. Right Atrium: The right atrium is normal in size. Atrial Septum: Bubble study was performed with and with out valsalva indicating no evidence of intra atrial shunt. Mitral Valve: Normal appearance and function of the mitral valve with trace physiologic regurgitation. Aortic Valve: Normal appearance of the aortic valve. No significant aortic stenosis or insufficiency. Tricuspid Valve: Normal appearance and function of the tricuspid valve with trace physiologic regurgitation. Normal right ventricular systolic pressure. Pulmonic Valve: Normal pulmonic valve appearance. Pericardium: Normal pericardium with no significant pericardial effusion. Aorta: Normal aortic root. IVC: Normal size and normal respiratory collapse consistent with normal right atrial pressure. Conclusions: Normal left ventricular cavity size. Moderate concentric left ventricular hypertrophy. Ejection fraction is visually estimated at 35-40 %. Tissue Doppler/Mitral Doppler indices are consistent with impaired relaxation (Stage I diastolic dysfunction). Multiple segmental wall motion abnormalities. These segments of the LV are hypokinetic mid anterior segment, apical anterior segment, inferior apex segment, apex and apical septum. Normal appearance and function of the mitral valve with trace physiologic regurgitation. Normal appearance of the aortic valve. No significant aortic stenosis or insufficiency. Normal appearance and function of the tricuspid valve with trace physiologic regurgitation. Normal right ventricular systolic pressure. suboptimal study. Bubble study was performed with and with out valsalva indicating no evidence of intra atrial shunt but poor quality study was done. Electronically Signed By: Ovidio Mojica 2018-11-03 19:37:37 PDT
[2018-11-03] MEDS ORDERED: INSULIN GLARGINE [LANTus] (100 UNITS/ML) SYG SC SCH (20:00)
[2018-11-03] MEDS: ATORVASTATIN 80 MG TAB PO SCH (20:54)
[2018-11-04] VITALS (11 sets, daily range): BP systolic 126–135; BP diastolic 61–78; PULSE 71–90; RESP 17–20
[2018-11-04] MEDS: ACCU-CHEK XX SCH (02:00)
[2018-11-04] MEDS: INSULIN ASPART [NOVOLOG] 3 ML PEN SC SCH ×7 (08:00→20:48)
[2018-11-04] MEDS: LISINOPRIL 20 MG TAB PO SCH (08:58)
[2018-11-04] MEDS: ASPIRIN (EC) 81 MG TAB PO SCH (08:58)
[2018-11-04] MEDS: INSULIN GLARGINE [LANTus] (100 UNITS/ML) SYG SC SCH (09:04)
[2018-11-04] MEDS ORDERED: IOHEXOL 100 ML ONE (10:14)
[2018-11-04] MEDS ORDERED: SOD CHLORIDE 0.9% 100 ML ONE (10:14)
[2018-11-04] MEDS ORDERED: IOHEXOL 350MG/ML 50 ML BTL ONE (10:19)
--- NOTE | 2018-11-04 10:43 | PN ---
Date/Time of Note Date/Time of Note DATE: 11/04/18 TIME: 10:39 Assessment/Plan VTE Prophylaxis Risk score (from Ns)>0 risk: 3 SCD applied (from [facility]): No SCD contraindicated: other Pharmacological prophylaxis: NA/contraindicated Pharm contraindication: low risk/ambulating Lines/Catheters IV C[facility] Type (from [facility] Saline Lock Urinary Cath still in place: No Assessment/Plan Hospital Course SUBJECTIVE: No acute overnight episodes. OBJECTIVE: Vital signs-see below PHYSICAL EXAM: Constitutional: Obese male,not in acute distress. HEENT: Head atraumatic and normocephalic. Eyes: Extraocular muscles intact. Anicteric sclerae. Pupils equal bilaterally, reactive to light. NECK: Supple without lymph node. CHEST: Clear and good breath sounds equally. No wheezing. No rhonchi. HEART: S1, S2. Regular rate and rhythm. ABDOMEN: Protuberant/non tender with no rebound tenderness. Bowel sounds were present. EXTREMITIES: No cyanosis, clubbing or edema. NEUROLOGIC: Speech:having difficulty finding words with mild dysarthria. Alert and oriented x3. Motor strength 5 out of 5 on all 4 extremities. No sensory deficit. PSYCHOSOCIAL: No signs of depression. INTEGUMENTARY: No open wounds. ASSESSMENT AND PLAN: 63-year-old morbidly obese male, with no PCP checkups, admitted with sudden onset of severe headache, difficulty finding words, found to have CVA.... Acute CVA -unable to go for MRI due to body habitus. At this time, go ahead with CTA head/neck. -Aspirin/high intensity statin -PT/ST/rehab -Follow-up neurology recommendations New onset type 2 diabetes A1c 12.5 -Now stable. Continue with basal/bolus insulin. -Metformin, carbohydrate controlled diet on discharge. -DM education Cardiomyopathy with ejection fraction 35-40% -cont ACEI -Cardiology consultation -Add BNP Essential hypertension -Appropriately controlled with EUGENIE inhibitors Morbid obesity with BMI 41.9 -Weight reduction advised DVT prophylaxis: SCDs PUD prophylaxis: Pepcid Disposition: Continue current management. Follow-up CTA studies. DC planning in 24 hours home with outpatient PCP follow-up. Patient was seen in collaboration with Result Diagram: 11/04/18 0523 11/04/18522 Results 24hrs Laboratory Tests Test 11/03/18 12:21 11/03/18 17:48 11/03/18 20:54 11/04/18 05:23 Bedside Glucose 231 H 193 108 White Blood Count 8.4 Red Blood Count 5.17 Hemoglobin 15.3 Hematocrit 45.6 Mean Corpuscular 88.2 Volume Mean Corpuscular 29.6 Hemoglobin Mean Corpuscular 33.6 Hemoglobin Concent Red Cell Distribution 12.3 Width Platelet Count 209 Mean Platelet Volume 8.9 Immature Granulocytes 0.500 H % Neutrophils % 50.5 Lymphocytes % 35.4 Monocytes % 9.5 Eosinophils % 3.1 Basophils % 1.0 Nucleated Red Blood 0.0 Cells % Immature Granulocytes 0.040 H # Neutrophils # 4.2 Lymphocytes # 3.0 H Monocytes # 0.8 Eosinophils # 0.3 Basophils # 0.1 Nucleated Red Blood 0.0 Cells # Erythrocyte 22 H Sedimentation Rate Sodium Level 139 Potassium Level 4.0 Chloride Level 106 Carbon Dioxide Level 24 Anion Gap 9 Blood Urea Nitrogen 11 Creatinine 0.78 Est Glomerular > 60 Filtrat Rate mL/min Glucose Level 183 Calcium Level 9.0 Total Bilirubin 0.6 Direct Bilirubin 0.00 Indirect Bilirubin 0.6 Aspartate Amino 21 Transf (AST/SGOT) Alanine 35 Aminotransferase (ALT /SGPT) Alkaline Phosphatase 96 Total Protein 7.0 Albumin 3.5 Globulin 3.50 H Albumin/Globulin 1.00 Ratio Test 11/04/18 08:29 Bedside Glucose 129 Exam/Review of Systems Exam Vitals Vital Signs Date Temp Pulse Resp B/P (MAP) Pulse Ox O2 O2 Flow FiO2 Time Delivery Rate 11/04/18 72 08:39 11/04/18 98.6 18 135/69 94 07:35 (91) 11/02/18 Room Air 23:30 Intake and Output 11/03/18 11/03/18 11/04/18 1515:00 23:00 07:00 IntakeIntake Total 680 ml BalanceBalance 680 ml Results Results 24hrs Laboratory Tests Test 11/03/18 12:21 11/03/18 17:48 11/03/18 20:54 11/04/18 05:23 Bedside Glucose 231 H 193 108 White Blood Count 8.4 Red Blood Count 5.17 Hemoglobin 15.3 Hematocrit 45.6 Mean Corpuscular 88.2 Volume Mean Corpuscular 29.6 Hemoglobin Mean Corpuscular 33.6 Hemoglobin Concent Red Cell Distribution 12.3 Width Platelet Count 209 Mean Platelet Volume 8.9 Immature Granulocytes 0.500 H % Neutrophils % 50.5 Lymphocytes % 35.4 Monocytes % 9.5 Eosinophils % 3.1 Basophils % 1.0 Nucleated Red Blood 0.0 Cells % Immature Granulocytes 0.040 H # Neutrophils # 4.2 Lymphocytes # 3.0 H Monocytes # 0.8 Eosinophils # 0.3 Basophils # 0.1 Nucleated Red Blood 0.0 Cells # Erythrocyte 22 H Sedimentation Rate Sodium Level 139 Potassium Level 4.0 Chloride Level 106 Carbon Dioxide Level 24 Anion Gap 9 Blood Urea Nitrogen 11 Creatinine 0.78 Est Glomerular > 60 Filtrat Rate mL/min Glucose Level 183 Calcium Level 9.0 Total Bilirubin 0.6 Direct Bilirubin 0.00 Indirect Bilirubin 0.6 Aspartate Amino 21 Transf (AST/SGOT) Alanine 35 Aminotransferase (ALT /SGPT) Alkaline Phosphatase 96 Total Protein 7.0 Albumin 3.5 Globulin 3.50 H Albumin/Globulin 1.00 Ratio Test 11/04/18 08:29 Bedside Glucose 129 Medications Medication Current Medications IV Flush (NS 3 ml) 3 ml PER PROTOCOL IV ; Start 11/02/18 at 20:00 Ondansetron HCl (Zofran Tab) 4 mg Q6H PRN PO NAUSEA/VOMITING; Start 11/02/18 at 20:00 Acetaminophen (Tylenol Tab) 650 mg Q6H PRN PO .PAIN 1-3 OR TEMP; Start 11/02/18 at 20:00 Docusate Sodium (Colace) 100 mg Q12H PRN PO .CONSTIPATION; Start 11/02/18 at 20:00 Bisacodyl (Dulcolax) 5 mg DAILY PRN PO .CONSTIPATION; Start 11/02/18 at 20:00 Atorvastatin Calcium (Lipitor) 80 mg HS PO Last administered on 11/03/18at 20:54; Admin Dose 80 MG; Start 11/02/18 at 21:00 Lisinopril (Zestril) 20 mg DAILY PO Last administered on 11/04/18at 08:58; Admin Dose 20 MG; Start 11/03/18 at 09:00 Hydralazine HCl (Apresoline) 10 mg Q4H PRN IV ELEVATED BLOOD PRESSURE; Start 11/02/18 at 22:30 Diagnostic Test (Pha) (Accu-Chek) 1 ea 02 XX ; Start 11/03/18 at 02:00 Miscellaneous Information 1 ea NOTE XX ; Start 11/02/18 at 23:00 Glucose (Glutose) 15 gm Q15M PRN PO DECREASED GLUCOSE; Start 11/02/18 at 23:00 Glucose (Glutose) 22.5 gm Q15M PRN PO DECREASED GLUCOSE; Start 11/02/18 at 23:00 Dextrose (D50w Syringe) 25 ml Q15M PRN IV DECREASED GLUCOSE; Start 11/02/18 at 23:00 Dextrose (D50w Syringe) 50 ml Q15M PRN IV DECREASED GLUCOSE; Start 11/02/18 at 23:00 Glucagon (Glucagen) 1 mg Q15M PRN IM DECREASED GLUCOSE; Start 11/02/18 at 23:00 Glucose (Glutose) 15 gm Q15M PRN BUCCAL DECREASED GLUCOSE; Start 11/02/18 at 23:00 Aspirin (Halfprin) 81 mg DAILY PO Last administered on 11/04/18at 08:58; Admin Dose 81 MG; Start 11/03/18 at 09:00 Insulin Glargine (Lantus) 35 units DAILY@0800 SC Last administered on 11/04/18at 09:04; Admin Dose 35 UNITS; Start 11/04/18 at 08:00 Insulin Aspart (Novolog Insulin Pen) 10 unit WITH MEALS SC Last administered on 11/04/18at 09:04; Admin Dose 10 UNIT; Start 11/03/18 at 12:00 Insulin Aspart (Novolog Insulin Pen) NOVOLOG *MILD* ALGORITHM WITH MEALS BEDTIME SC Last administered on 11/03/18at 17:51; Admin Dose 2 UNIT; Start 11/03/18 at 12:00 JEAN-CLAUDE PRATHER NP November 04, 2018 10:43
--- NOTE | 2018-11-04 15:56 | CONS ---
Assessment/Plan Assessment/Plan Hospital Course 63 yo M with multiple cerebrovascular risk factors who presents for evaluation of ams and difficulty with word finding x several days... for which neurology is consulted. HCT confirmed an acute-appearing L temporoparietal infarct....for which neurology is consulted.. Echo is notable for EF 35-40% as well as multiple segmental wall motion abnormalities ESR 22, RPR neg LDL 111 A1C 12.5 UDS neg P: Await MRI/MRA H/N for further characterization Agree w/ ASA/Lipitor daily for secondary stroke prevention for now Continued medical management and supportive care per primary ST as necessary Will follow clinically Consultation Date/Type/Reason Admit Date/Time Nov 02, 2018 at 18:27 Type of Consult Neurology Reason for Consultation stroke Requesting Provider: STACI SANTOS Date/Time of Note DATE: 11/04/18 TIME: 15:55 24 HR Interval Summary Free Text/Dictation Continues acute care. Pt states that his speech is better today. Exam Vital Signs Vitals Vital Signs Date Temp Pulse Resp B/P (MAP) Pulse Ox O2 O2 Flow FiO2 Time Delivery Rate 11/04/18 90 12:32 11/04/18 18 130/69 91 11:14 (89) 11/04/18 98.6 07:35 11/02/18 Room Air 23:30 Intake and Output 11/03/18 11/03/18 11/04/18 1414:59 22:59 06:59 IntakeIntake Total 680 ml BalanceBalance 680 ml Exam PE: Gen Appearance: No Apparent Distress HEENT: Normocephalic Cardiovascular: Regular rate Lungs: Clear bilaterally Abdomen: Soft Extremities: Dry NE: The patient was alert and oriented. Is slightly dysphasic, though improved. Fund of knowledge was adequate. Pupils were equal and reactive to light. There was no afferent pupillary defect. Visual mcmullen were normal. Funduscopic examination was limited. Extra-ocular movements were full. Ptosis was absent. There was no nystagmus. Facial sensation was normal. Face was symmetric with normal strength. Hearing was intact. Palate movements were normal. Neck strength was normal. There was normal tongue bulk and speed of movement. Tone was normal. Muscle bulk was normal. I did not see fasciculations. Arms and legs were strong. Vibration sensation was normal. Temperature and pinprick sensation was normal. Rapid alternating movements were normal. There was no dysmetria. There was no intention tremor. Gait was deferred due to bedrest. Arm and leg reflexes were 2+ and symmetric. Landeros's sign was absent. Plantar responses were flexor. THIAGO CARRERA NP November 04, 2018 15:56
--- NOTE | 2018-11-04 16:35 | CONS ---
DATE OF ADMISSION: 11/02/2018 DATE OF CONSULTATION: 11/04/2018 TYPE OF CONSULTATION: Cardiology. REASON FOR CONSULTATION: Cardiomyopathy with decreased left ventricular ejection fraction. REQUESTING PHYSICIAN: Jennifer Prather NP, from the hospitalist service. HISTORY OF PRESENT ILLNESS: Mr. Myers is a very pleasant 63-year-old male with a history of prior m yocardial infarction with subsequent PTCA and stent placement in 2010 per description sounds like may be an ST elevation [place], hypertension, diabetes mellitus, ongoing tobacco intake, who presented with 1 to 2 days of worsening headache and then onset of difficulty speaking per description sounds like ap hasia. Upon arrival in the emergency department, temperature of 98.5, blood pressure 186/94, pulse 8 8, respiratory rate 18, satting 98%. The patient's labs with white blood cell count of 8.5, hemoglob in 15.3, platelet count 323, sodium of 137, potassium 4.2, creatinine 0.8, BUN 13, troponin negative, hemoglobin A1c of 12.5, LDL 11, HDL of 41, TSH of 2, negative troponin, INR of 0.99. Tox screen neg ative, UA borderline. The patient underwent a chest x-ray revealing moderate elevation of left diaph ragm with left lower lung volume loss, mild vascular prominence, a head CT revealing subacute appeari ng left temporoparietal nonhemorrhagic infarct, head CTA that revealed no significant major vessels i ntracranial arterial occlusion identified and a followup brain CT on 11/04/2018 revealing recent suba cute left occipital insular MCA territory infarct. The patient's electrocardiogram revealed normal s inus rhythm, rate of 79, right bundle branch block, left axis deviation, left anterior fascicular blo ck, anteroseptal Q's and borderline inferior Q's. The patient was subsequently admitted to the floor and consulted by the neurology service. The patient underwent a 2D echo interpreted by current card iologist with an EF of 35% to 40%. Given these findings, cardiology consult has been requested. PAST MEDICAL HISTORY: As above in HPI. MEDICATIONS CURRENTLY IN HOSPITAL: 1. Lantus. 2. Zestril 20 mg daily. 3. Aspirin 81 mg daily. 4. Lipitor 80 mg at bedtime. ALLERGIES: NO KNOWN DRUG ALLERGIES. SOCIAL HISTORY: Positive tobacco. No EtOH. No illicit drug use. FAMILY HISTORY: No history of sudden cardiac or early CAD. REVIEW OF SYSTEMS: As above in HPI. CONSTITUTIONAL: No fevers, chills. PULMONARY: No current shortness of breath. CARDIOVASCULAR: No current chest pain. GASTROINTESTINAL: No vomiting. GENITOURINARY: No hematuria. MUSCULOSKELETAL: Degenerative joint disease. PSYCHIATRIC: No documented psych history. NEUROLOGIC: Acute CVA. No significant focal deficits at this time. PHYSICAL EXAMINATION: VITAL SIGNS: Temperature of 98.6, blood pressure 130/69, pulse 75, respiratory rate 18, satting 91%. GENERAL: The patient is alert, awake, in no acute distress. NECK: JVP approximately is 8 to 9 cm of water. CHEST: Fair air movement throughout. HEART: Regular rate and rhythm. Normal S1, S2, I/ systolic murmur, nondisplaced PMI. ABDOMEN: Positive bowel sounds, soft. EXTREMITIES: No edema. A 1+ pulses bilateral posterior tibial. LABORATORY DATA: Most recently from today, sodium 139, potassium 4.0, creatinine 0.78, BUN 11. Albu min 3.5. White blood cell count 8.4, hemoglobin 15.3, platelet count 209. IMAGING STUDIES: As above in HPI. No further imaging studies for my review at this time. ELECTROCARDIOGRAM: As above in HPI. No further electrocardiograms for my review at this time. IMPRESSION: 1. Cardiomyopathy with decreased left ventricular ejection fraction, likely non-acute likely from ti me the patient had myocardial infarction in 2010. 2. Mildly increased BNP consistent with the patient's reasonable volume status at this time. 3. Hypertension, reasonable control. 4. Dyslipidemia. 5. Acute cerebrovascular accident with aphasia, no significant extremity weakness. 6. Diabetes mellitus with severe elevated hemoglobin A1c that is consistent with significantly uncon trolled blood sugars. 7. Ongoing tobacco usage. RECOMMENDATIONS: 1. At this time, we would maintain the patient on telemetry monitoring to follow rhythm and rate con trol closely. 2. We would complete the patient's rule out for myocardial infarction to ensure the patient's EKG ab normalities and 2D echo findings are chronic in nature and not due to any recent acute coronary syndr ome. 3. We will consider initiation of gentle daily Lasix to assure good volume status. 4. Continue the patient's EUGENIE inhibitor afterload reduction and if there is no requirement for permi ssive hypertension, we will initiate the patient on a low dose beta hernandez for treatment of cardiomy opathy. 5. We will continue the patient's aspirin at this time and we will continue the patient's high dose statin in setting of acute CVA. 6. Ongoing neurologic followup. 7. Follow the patient's blood sugars closely. Thank you for allowing me to take part in the care of this patient. I will continue to follow him al baljit very closely with you with further recommendations to be made as the patient progresses through h is inpatient hospital clinical course. Dictated By: SUSIE STAPLETON/NIRAJ Conf#: [id number] DID#: [id number] CC: STACI SANTOS MD; JENNIFER PRATHER NP; MARLON DARDEN MD;*End*
[2018-11-04] MEDS: ATORVASTATIN 80 MG TAB PO SCH (20:49)
[2018-11-05] VITALS (10 sets, daily range): BP systolic 108–152; BP diastolic 56–87; PULSE 70–82; RESP 18–19
[2018-11-05] MEDS: ACCU-CHEK XX SCH (02:00)
[2018-11-05] MEDS: INSULIN ASPART [NOVOLOG] 3 ML PEN SC SCH ×6 (08:00→17:22)
[2018-11-05] MEDS: LISINOPRIL 20 MG TAB PO SCH (08:49)
[2018-11-05] MEDS: ASPIRIN (EC) 81 MG TAB PO SCH (08:50)
[2018-11-05] MEDS: INSULIN GLARGINE [LANTus] (100 UNITS/ML) SYG SC SCH (08:56)
[2018-11-05] MEDS ORDERED: FUROSEMIDE 20 MG TAB PO SCH (09:00)
--- NOTE | 2018-11-05 11:11 | PDOCDIS ---
Discharge Instructions CONDITION [id number] Patient Condition: [id number] Stable HOME CARE INSTRUCTIONS: [id number] Your diet recommendation is: [id number] Carbohydrate controlled/low-cholesterol/low-fat diet. FOLLOW UP/APPOINTMENTS Follow-up Plan Follow-up with primary care physician in 1 week. Therapeutic lifestyle changes with diet modification as we discussed in detail, daily walking 30 to 45 minutes. Repeat cholesterol and blood sugar level in 4 weeks. JEAN-CLAUDE PRATHER NP November 05, 2018 11:10
[2018-11-05] MEDS ORDERED: LISI-471 PO (11:13)
[2018-11-05] MEDS ORDERED: LAS20 PO (11:13)
[2018-11-05] MEDS ORDERED: ASPI-817 PO (11:13)
[2018-11-05] MEDS ORDERED: ATOR-2 PO (11:13)
--- NOTE | 2018-11-05 11:15 | PN ---
Date/Time of Note Date/Time of Note DATE: 11/05/18 TIME: 11:14 Assessment/Plan VTE Prophylaxis Risk score (from Ns)>0 risk: 3 SCD applied (from Ns): No SCD contraindicated: other Pharmacological prophylaxis: NA/contraindicated Pharm contraindication: low risk/ambulating Lines/Catheters IV C[facility]ter Type [facility]from [facility] Saline Lock Urinary Cath still in place: No Assessment/Plan Hospital Course SUBJECTIVE: No acute overnight episodes. OBJECTIVE: Vital signs-see below PHYSICAL EXAM: Constitutional: Obese male,not in acute distress. HEENT: Head atraumatic and normocephalic. Eyes: Extraocular muscles intact. Anicteric sclerae. Pupils equal bilaterally, reactive to light. NECK: Supple without lymph node. CHEST: Clear and good breath sounds equally. No wheezing. No rhonchi. HEART: S1, S2. Regular rate and rhythm. ABDOMEN: Protuberant/non tender with no rebound tenderness. Bowel sounds were present. EXTREMITIES: No cyanosis, clubbing or edema. NEUROLOGIC: Speech:having difficulty finding words with mild dysarthria. Alert and oriented x3. Motor strength 5 out of 5 on all 4 extremities. No sensory deficit. PSYCHOSOCIAL: No signs of depression. INTEGUMENTARY: No open wounds. ASSESSMENT AND PLAN: 63-year-old morbidly obese male, with no PCP checkups, admitted with sudden onset of severe headache, difficulty finding words, found to have CVA.... Acute CVA -unable to go for MRI due to body habitus. CTA with no major vessel occlusions. -Aspirin/high intensity statin -PT/ST/rehab -Follow-up neurology recommendations New onset type 2 diabetes A1c 12.5 -Now stable. Continue with basal/bolus insulin. -Metformin/glipizide, carbohydrate controlled diet on discharge. -DM education Cardiomyopathy with ejection fraction 35-40% -cont ACEI. Plan is to start low-dose beta-hernandez likely today. -Follow-up cardiology recommendations. Essential hypertension -on EUGENIE inhibitors Morbid obesity with BMI 41.9 -Weight reduction advised DVT prophylaxis: SCDs PUD prophylaxis: Pepcid Disposition: Continue current management. DC planning in 24 hours once cleared from cardiology/neurology standpoint. Patient was seen in collaboration with Result Diagram: 11/05/18 0508 11/05/18 0508 Results 24hrs Laboratory Tests Test 5/1/19 11:45 11/04/18 17:11 11/04/18 17:44 11/04/18 20:40 Bedside Glucose 160 153 167 Troponin I < 0.012 Test 11/05/18 00:35 11/05/18 05:08 11/05/18 08:37 Troponin I < 0.012 White Blood Count 8.2 Red Blood Count 5.13 Hemoglobin 15.1 Hematocrit 46.0 Mean Corpuscular Volume 89.7 Mean Corpuscular 29.4 Hemoglobin Mean Corpuscular 32.8 Hemoglobin Concent Red Cell Distribution 12.2 Width Platelet Count 218 Mean Platelet Volume 9.1 Immature Granulocytes % 0.600 H Neutrophils % 49.9 Lymphocytes % 33.9 Monocytes % 10.8 Eosinophils % 3.7 Basophils % 1.1 Nucleated Red Blood 0.0 Cells % Immature Granulocytes # 0.050 H Neutrophils # 4.1 Lymphocytes # 2.8 Monocytes # 0.9 Eosinophils # 0.3 Basophils # 0.1 Nucleated Red Blood 0.0 Cells # Sodium Level 140 Potassium Level 4.1 Chloride Level 104 Carbon Dioxide Level 26 Anion Gap 10 Blood Urea Nitrogen 12 Creatinine 0.91 Est Glomerular Filtrat > 60 Rate mL/min Glucose Level 105 # Calcium Level 9.2 Total Bilirubin 0.6 Direct Bilirubin 0.00 Indirect Bilirubin 0.6 Aspartate Amino 59 #H Transf (AST/SGOT) Alanine 40 Aminotransferase (ALT/SG PT) Alkaline Phosphatase 93 Total Protein 7.0 Albumin 3.7 Globulin 3.30 H Albumin/Globulin Ratio 1.12 Bedside Glucose 131 Exam/Review of Systems Exam Vitals Vital Signs Date Temp Pulse Resp B/P (MAP) Pulse Ox O2 O2 Flow FiO2 Time Delivery Rate 11/05/18 82 08:20 11/05/18 98.5 18 152/80 95 07:42 (104) 11/02/18 Room Air 23:30 Intake and Output 11/04/18 11/04/18 11/05/18 1414:59 22:59 06:59 IntakeIntake Total 1700 ml OutputOutput Total 550 ml BalanceBalance 1150 ml Results Results 24hrs Laboratory Tests Test 11/04/18 11:45 11/04/18 17:11 11/04/18 17:44 11/04/18 20:40 Bedside Glucose 160 153 167 Troponin I < 0.012 Test 11/05/18 00:35 11/05/18 05:08 11/05/18 08:37 Troponin I < 0.012 White Blood Count 8.2 Red Blood Count 5.13 Hemoglobin 15.1 Hematocrit 46.0 Mean Corpuscular Volume 89.7 Mean Corpuscular 29.4 Hemoglobin Mean Corpuscular 32.8 Hemoglobin Concent Red Cell Distribution 12.2 Width Platelet Count 218 Mean Platelet Volume 9.1 Immature Granulocytes % 0.600 H Neutrophils % 49.9 Lymphocytes % 33.9 Monocytes % 10.8 Eosinophils % 3.7 Basophils % 1.1 Nucleated Red Blood 0.0 Cells % Immature Granulocytes # 0.050 H Neutrophils # 4.1 Lymphocytes # 2.8 Monocytes # 0.9 Eosinophils # 0.3 Basophils # 0.1 Nucleated Red Blood 0.0 Cells # Sodium Level 140 Potassium Level 4.1 Chloride Level 104 Carbon Dioxide Level 26 Anion Gap 10 Blood Urea Nitrogen 12 Creatinine 0.91 Est Glomerular Filtrat > 60 Rate mL/min Glucose Level 105 # Calcium Level 9.2 Total Bilirubin 0.6 Direct Bilirubin 0.00 Indirect Bilirubin 0.6 Aspartate Amino 59 #H Transf (AST/SGOT) Alanine 40 Aminotransferase (ALT/SG PT) Alkaline Phosphatase 93 Total Protein 7.0 Albumin 3.7 Globulin 3.30 H Albumin/Globulin Ratio 1.12 Bedside Glucose 131 Medications Medication Current Medications IV Flush (NS 3 ml) 3 ml PER PROTOCOL IV ; Start 11/02/18 at 20:00 Ondansetron HCl (Zofran Tab) 4 mg Q6H PRN PO NAUSEA/VOMITING; Start 11/02/18 at 20:00 Acetaminophen (Tylenol Tab) 650 mg Q6H PRN PO .PAIN 1-3 OR TEMP; Start 11/02/18 at 20:00 Docusate Sodium (Colace) 100 mg Q12H PRN PO .CONSTIPATION; Start 11/02/18 at 20:00 Bisacodyl (Dulcolax) 5 mg DAILY PRN PO .CONSTIPATION; Start 11/02/18 at 20:00 Atorvastatin Calcium (Lipitor) 80 mg HS PO Last administered on 11/04/18at 20:49; Admin Dose 80 MG; Start 11/02/18 at 21:00 Lisinopril (Zestril) 20 mg DAILY PO Last administered on 11/05/18at 08:49; Admin Dose 20 MG; Start 11/03/18 at 09:00 Hydralazine HCl (Apresoline) 10 mg Q4H PRN IV ELEVATED BLOOD PRESSURE; Start 11/02/18 at 22:30 Diagnostic Test (Pha) (Accu-Chek) 1 ea 02 XX ; Start 11/03/18 at 02:00 Miscellaneous Information 1 ea NOTE XX ; Start 11/02/18 at 23:00 Glucose (Glutose) 15 gm Q15M PRN PO DECREASED GLUCOSE; Start 11/02/18 at 23:00 Glucose (Glutose) 22.5 gm Q15M PRN PO DECREASED GLUCOSE; Start 11/02/18 at 23:00 Dextrose (D50w Syringe) 25 ml Q15M PRN IV DECREASED GLUCOSE; Start 11/02/18 at 23:00 Dextrose (D50w Syringe) 50 ml Q15M PRN IV DECREASED GLUCOSE; Start 11/02/18 at 23:00 Glucagon (Glucagen) 1 mg Q15M PRN IM DECREASED GLUCOSE; Start 11/02/18 at 23:00 Glucose (Glutose) 15 gm Q15M PRN BUCCAL DECREASED GLUCOSE; Start 11/02/18 at 23:00 Aspirin (Halfprin) 81 mg DAILY PO Last administered on 11/05/18 08:50; Admin Dose 81 MG; Start 11/03/18 at 09:00 Insulin Glargine (Lantus) 35 units DAILY@0800 SC Last administered on 11/05/18 08:56; Admin Dose 35 UNITS; Start 11/04/18 at 08:00 Insulin Aspart (Novolog Insulin Pen) 10 unit WITH MEALS SC Last administered on 11/05/18at 08:56; Admin Dose 10 UNIT; Start 11/03/18 at 12:00 Insulin Aspart (Novolog Insulin Pen) NOVOLOG *MILD* ALGORITHM WITH MEALS BEDTIME SC Last administered on 11/04/18at 17:50; Admin Dose 1 UNIT; Start 11/03/18 at 12:00 Furosemide (Lasix) 20 mg DAILY PO Last administered on 11/05/18 08:50; Admin Dose 20 MG; Start 11/05/18 at 09:00 JEAN-CLAUDE PRATHER NP November 05, 2018 11:15
[2018-11-05] MEDS ORDERED: METF-849 PO (11:18)
[2018-11-05] MEDS ORDERED: GLIP5TAB13 PO (11:18)
[2018-11-05] MEDS ORDERED: METO-335 PO (11:32)
--- NOTE | 2018-11-05 11:58 | DS ---
Date/Time of Note Date/Time of Note DATE: 11/05/18 TIME: 11:56 Discharge Summary Admission/Discharge Info Admit Date/Time Nov 02, 2018 at 18:27 Discharge Date/Time Discharge Diagnosis Acute CVA New onset type 2 diabetes Cardiomyopathy with ejection fraction 35-40% Essential hypertension Morbid obesity with BMI 41.9 Patient Condition: Stable Consults Dr. Soni, marketing pr intern ,neurology Procedures 11/02/2018. Brain CT. IMPRESSION: Subacute appearing left temporal - parietal nonhemorrhagic infarct with slight mass effect on the left lateral ventricle. RP physician [employer] team member requested to call report by the undersigned at 18:10. RPTAT: HMVK 11/04/2018. CT of head and neck. IMPRESSION: 1. No cervical or major vessel intracranial arterial occlusion identified. 2. Atherosclerotic disease, with mild to moderate right and mild left intracranial ICA stenoses as detailed above. RPTAT: VV 11/03/2018. 2D echocardiogram. Conclusions: Normal left ventricular cavity size. Moderate concentric left ventricular hypertrophy. Ejection fraction is visually estimated at 35-40 %. Tissue Doppler/Mitral Doppler indices are consistent with impaired relaxation (Stage I diastolic dysfunction). Multiple segmental wall motion abnormalities. These segments of the LV are hypokinetic mid anterior segment, apical anterior segment, inferior apex segment, apex and apical septum. Normal appearance and function of the mitral valve with trace physiologic regurgitation. Normal appearance of the aortic valve. No significant aortic stenosis or insufficiency. Normal appearance and function of the tricuspid valve with trace physiologic regurgitation. Normal right ventricular systolic pressure. suboptimal study. Bubble study was performed with and with out valsalva indicating no evidence of intra atrial shunt but poor quality study was done. Electronically Signed By: Vero Mojica 2018-11-03 19:37:37 PDT Dictated By: VERO MOJICA MD Signed By: Hospital Course 63-year-old morbidly obese male, with no PCP checkups, admitted with sudden onset of severe headache, difficulty finding words, found to have CVA, involving temporoparietal area. Due to body habitus, patient is not a candidate for MRI evaluation. CTA studies with no major vessel occlusions. Patient was continued on aspirin and high intensity statin. Patient had physical therapy and speech therapy follow-up and did not require any further inpatient rehab. She was able to communicate appropriately with some mild difficulty finding words which is improved. Hospitalization was also noted for new onset type 2 diabetes which is poorly managed with A1c 12.5. Patient was given insulin and blood sugar got under control. Patient also had extensive diabetic education and he was also given a freestyle glucometer for home use. Patient also noted with cardiomyopathy with ejection fraction 35 to 40% for which patient had cardiology follow-up and was started on low-dose beta-blockers and continued on EUGENIE inhibitors. Blood pressure remained stable. He was repeatedly counseled on primary care follow- up, lifestyle changes. Patient and family verbalized instructions. At this time, patient is hemodynamically stable for outpatient follow-up. Again, patient was given all prescriptions with 1 refills which will give him ample time for finding a primary care provider. He was also given metformin and glipizide regimen for diabetes control. He was also given a freestyle glucometer. Approximately 60 m spent on coordinating the discharge on this patient. Patient was seen in collaboration with Dr. Russ. Home Meds Active Scripts Metoprolol Succinate* (Toprol XL*) 25 Mg Tab.sr.24h, 25 MG PO DAILY, #30 TAB Prov:PRATHER,JEAN-CLAUDE V. BREAKFAST BAR ATTENDANT 11/05/18 Glipizide* (Glipizide*) 5 Mg Tablet, 2.5 MG PO AC BREAKFAST, #30 TAB Prescribed doses 2.5 mg. If possible, provide 2.5 mg dosage strength pills. Prov:PARTHER,JEAN-CLAUDE V. BREAKFAST BAR ATTENDANT 11/05/18 Metformin* (Glucophage*) 500 Mg Tab, 500 MG PO WITH BREAKFAST DINNE, #60 TAB Start metformin daily for 2 to 3 days, and if tolerating well with no stomach upset, vomiting, increase dose to twice a day. Prov:PRATHER,JEAN-CLAUDE V. BREAKFAST BAR ATTENDANT 11/05/18 Furosemide (Lasix) 20 Mg Tab, 20 MG PO DAILY, #30 TAB Prov:PRATHER,JEAN-CLAUDE V. BREAKFAST BAR ATTENDANT 11/05/18 Atorvastatin* (Atorvastatin*) 80 Mg Tablet, 80 MG PO HS, #30 TAB 1 Refill Prov:PRATHERLUIS MANUELA V. BREAKFAST BAR ATTENDANT 11/05/18 Lisinopril* (Lisinopril*) 20 Mg Tablet, 20 MG PO DAILY, #30 TAB 1 Refill Prov:PRATHERHENRIKJEAN-CLAUDE V. BREAKFAST BAR ATTENDANT 11/05/18 Aspirin* (Aspirin* EC) 81 Mg Tablet.dr, 81 MG PO DAILY, #30 TAB 1 Refill NEEDED Prov:PRATHERLUIS MANUELA V. BREAKFAST BAR ATTENDANT 11/05/18 Follow-up Plan Follow-up with primary care physician in 1 week. Therapeutic lifestyle changes with diet modification as we discussed in detail, daily walking 30 to 45 minutes. Repeat cholesterol and blood sugar level in 4 weeks. Primary Care Provider Care Physician No Primary Pending Labs Laboratory Tests Test 11/04/18 17:11 11/04/18 17:44 11/04/18 20:40 11/05/18 00:35 Troponin I < 0.012 < 0.012 ng/ml (0.000-0. ng/ml (0.000-0 120) .120) Bedside 153 167 Glucose mg/dL (70-220) mg/dL (70-220) Test 11/05/18 05:08 11/05/18 08:37 11/05/18 11:31 White Blood 8.2 Count 10^3/ul (4.8-10 .8) Red Blood 5.13 Count 10^6/ul (4.70-6 .10) Hemoglobin 15.1 g/dl (14.0-18.0 ) Hematocrit 46.0 % (42.0-52.0) Mean 89.7 Corpuscular fl (82.0-101.0) Volume Mean 29.4 Corpuscular pg (29.0-33.0) Hemoglobin Mean 32.8 Corpuscular g/dl (32.0-37.0 Hemoglobin Conc ) ent Red Cell 12.2 Distribution % (11.5-14.5) Width Platelet Count 218 10^3/UL (140-41 5) Mean Platelet 9.1 Volume fl (7.4-10.4) Immature 0.600 Granulocytes % % (0.001-0.429) Neutrophils % 49.9 % (39.0-77.0) Lymphocytes % 33.9 % (15.0-51.0) Monocytes % 10.8 % (0.0-11.0) Eosinophils % 3.7 % (0.0-7.0) Basophils % 1.1 % (0.0-2.0) Nucleated Red 0.0 Blood Cells % /100WBC (0.0-0. 0) Immature 0.050 Granulocytes # 10^3/ul (0.0-0. 031) Neutrophils # 4.1 10^3/ul (1.6-7. 5) Lymphocytes # 2.8 10^3/ul (0.8-2. 9) Monocytes # 0.9 10^3/ul (0.3-0. 9) Eosinophils # 0.3 10^3/ul (0.0-0. 5) Basophils # 0.1 10^3/ul (0.0-0. 1) Nucleated Red 0.0 Blood Cells # 10^3/ul (0.0-0. 0) Sodium Level 140 mmol/L (135-144 ) Potassium 4.1 Level mmol/L (3.5-5.1 ) Chloride Level 104 mmol/L (97-110) Carbon Dioxide 26 Level mmol/L (21-31) Anion Gap 10 (5-13) Blood Urea 12 mg/dl (7-20) Nitrogen Creatinine 0.91 mg/dl (0.61-1.2 4) Est Glomerular > 60 Filtrat mL/min (>60) Rate mL/min Glucose Level 105 mg/dl (70-220) Calcium Level 9.2 mg/dl (8.4-10.2 ) Total 0.6 Bilirubin mg/dl (0.2-1.3) Direct 0.00 Bilirubin mg/dl (0.00-0.2 0) Indirect 0.6 Bilirubin mg/dl (0-1.1) Aspartate Amino 59 IU/L (15-46) Transf (AST/SGO T) Alanine 40 IU/L (13-69) Aminotransferas e (ALT/SGPT) Alkaline 93 Phosphatase IU/L (42-121) Total Protein 7.0 g/dl (6.1-8.1) Albumin 3.7 g/dl (3.3-4.9) Globulin 3.30 g/dl (1.3-3.2) Albumin/Globuli 1.12 n Ratio Bedside 131 120 Glucose mg/dL (70-220) mg/dL (70-220) JEAN-CLAUDE PRATHER V. BREAKFAST BAR ATTENDANT November 05, 2018 11:58
[2018-11-05] MEDS ORDERED: METOPROLOL (XL) 25 MG TAB PO SCH (12:00)
--- NOTE | 2018-11-05 13:07 | CONS ---
Assessment/Plan Assessment/Plan Hospital Course (Demo Recall) IMPRESSION: 1. Cardiomyopathy with decreased left ventricular ejection fraction, likely non-acute likely from time the patient had myocardial infarction in 2010. 2. Mildly increased BNP consistent with the patient's reasonable volume status at this time. 3. Hypertension, reasonable control. 4. Dyslipidemia. 5. Acute cerebrovascular accident with aphasia, no significant extremity weakness. 6. Diabetes mellitus with severe elevated hemoglobin A1c that is consistent with significantly uncontrolled blood sugars. 7. Ongoing tobacco usage. REcc: -Tele -Contineu ACEI and now BB -Contineu asa/statin -Contineu daily lasix -outpatient f/u Consultation Date/Type/Reason Admit Date/Time Nov 02, 2018 at 18:27 Initial Consult Date 11/04/18 Type of Consult Cardiology Reason for Consultation HTN Requesting Provider: STACI SANTOS Date/Time of Note DATE: 11/05/18 TIME: 13:05 Exam/Review of Systems Vital Signs Vitals Vital Signs Date Temp Pulse Resp B/P (MAP) Pulse Ox O2 O2 Flow FiO2 Time Delivery Rate 11/05/18 74 12:16 11/05/18 98.4 18 126/76 91 11:36 (93) 11/02/18 Room Air 23:30 Intake and Output 11/04/18 11/04/18 11/05/18 1414:59 22:59 06:59 IntakeIntake Total 1700 ml OutputOutput Total 550 ml BalanceBalance 1150 ml Exam Exam Review of Systems: CONSTITUTIONAL: No fevers, chills. PULMONARY: No sob CARDIOVASCULAR: No chest pain/palpitations GASTROINTESTINAL: No nausea/vomiting. GENITOURINARY: No hematuria/dysuria. MUSCULOSKELETAL: No myagias/arthalgias. PSYCHIATRIC: The patient denies depression. NEUROLOGIC: No weakness Constitutional: alert Psych: no complaints Head: normocephalic ENMT: mucosa pink and moist Neck: supple, jvd (9 cm water) Respiratory: diminished breath sounds (at bases/B) Cardiovascular: regular rate and rhythm Gastrointestinal: soft, non-tender Musculoskeletal: muscle tone (normal) Extremities: edema (none) Neurological: other (aphasia) Labs Result Diagram: 11/05/18 0508 11/05/18 0508 Results 24hrs Laboratory Tests Test 11/04/18 17:11 11/04/18 17:44 11/04/18 20:40 11/05/18 00:35 Troponin I < 0.012 < 0.012 Bedside Glucose 153 167 Test 11/05/18 05:08 11/05/18 08:37 11/05/18 11:31 White Blood Count 8.2 Red Blood Count 5.13 Hemoglobin 15.1 Hematocrit 46.0 Mean Corpuscular Volume 89.7 Mean Corpuscular 29.4 Hemoglobin Mean Corpuscular 32.8 Hemoglobin Concent Red Cell Distribution 12.2 Width Platelet Count 218 Mean Platelet Volume 9.1 Immature Granulocytes % 0.600 H Neutrophils % 49.9 Lymphocytes % 33.9 Monocytes % 10.8 Eosinophils % 3.7 Basophils % 1.1 Nucleated Red Blood 0.0 Cells % Immature Granulocytes # 0.050 H Neutrophils # 4.1 Lymphocytes # 2.8 Monocytes # 0.9 Eosinophils # 0.3 Basophils # 0.1 Nucleated Red Blood 0.0 Cells # Sodium Level 140 Potassium Level 4.1 Chloride Level 104 Carbon Dioxide Level 26 Anion Gap 10 Blood Urea Nitrogen 12 Creatinine 0.91 Est Glomerular Filtrat > 60 Rate mL/min Glucose Level 105 # Calcium Level 9.2 Total Bilirubin 0.6 Direct Bilirubin 0.00 Indirect Bilirubin 0.6 Aspartate Amino 59 #H Transf (AST/SGOT) Alanine 40 Aminotransferase (ALT/SG PT) Alkaline Phosphatase 93 Total Protein 7.0 Albumin 3.7 Globulin 3.30 H Albumin/Globulin Ratio 1.12 Bedside Glucose 131 120 Medications Medications Current Medications IV Flush (NS 3 ml) 3 ml PER PROTOCOL IV ; Start 11/02/18 at 20:00 Ondansetron HCl (Zofran Tab) 4 mg Q6H PRN PO NAUSEA/VOMITING; Start 11/02/18 at 20:00 Acetaminophen (Tylenol Tab) 650 mg Q6H PRN PO .PAIN 1-3 OR TEMP; Start 11/02/18 at 20:00 Docusate Sodium (Colace) 100 mg Q12H PRN PO .CONSTIPATION; Start 11/02/18 at 20:00 Bisacodyl (Dulcolax) 5 mg DAILY PRN PO .CONSTIPATION; Start 11/02/18 at 20:00 Atorvastatin Calcium (Lipitor) 80 mg HS PO Last administered on 11/04/18at 20:49; Admin Dose 80 MG; Start 11/02/18 at 21:00 Lisinopril (Zestril) 20 mg DAILY PO Last administered on 11/05/18at 08:49; Admin Dose 20 MG; Start 11/03/18 at 09:00 Hydralazine HCl (Apresoline) 10 mg Q4H PRN IV ELEVATED BLOOD PRESSURE; Start 11/02/18 at 22:30 Diagnostic Test (Pha) (Accu-Chek) 1 ea 02 XX ; Start 11/03/18 at 02:00 Miscellaneous Information 1 ea NOTE XX ; Start 11/02/18 at 23:00 Glucose (Glutose) 15 gm Q15M PRN PO DECREASED GLUCOSE; Start 11/02/18 at 23:00 Glucose (Glutose) 22.5 gm Q15M PRN PO DECREASED GLUCOSE; Start 11/02/18 at 23:00 Dextrose (D50w Syringe) 25 ml Q15M PRN IV DECREASED GLUCOSE; Start 11/02/18 at 23:00 Dextrose (D50w Syringe) 50 ml Q15M PRN IV DECREASED GLUCOSE; Start 11/02/18 at 23:00 Glucagon (Glucagen) 1 mg Q15M PRN IM DECREASED GLUCOSE; Start 11/02/18 at 23:00 Glucose (Glutose) 15 gm Q15M PRN BUCCAL DECREASED GLUCOSE; Start 11/02/18 at 23:00 Aspirin (Halfprin) 81 mg DAILY PO Last administered on 11/05/18at 08:50; Admin Dose 81 MG; Start 11/03/18 at 09:00 Insulin Glargine (Lantus) 35 units DAILY@0800 SC Last administered on 11/05/18at 08:56; Admin Dose 35 UNITS; Start 11/04/18 at 08:00 Insulin Aspart (Novolog Insulin Pen) 10 unit WITH MEALS SC Last administered o n 11/05/18at 11:36; Admin Dose 10 UNIT; Start 11/03/18 at 12:00 Insulin Aspart (Novolog Insulin Pen) NOVOLOG *MILD* ALGORITHM WITH MEALS BEDTIME SC Last administered on 11/04/18at 17:50; Admin Dose 1 UNIT; Start 11/03/18 at 12:00 Furosemide (Lasix) 20 mg DAILY PO Last administered on 11/05/18at 08:50; Admin Dose 20 MG; Start 11/05/18 at 09:00 Metoprolol Succinate (Toprol Xl) 25 mg DAILY PO ; Start 11/05/18 at 12:00 SUSIE FREEMAN November 05, 2018 13:07
--- NOTE | 2018-11-05 14:48 | CONS ---
Assessment/Plan Assessment/Plan Hospital Course 63 yo M with multiple cerebrovascular risk factors who presents for evaluation of ams and difficulty with word finding x several days... for which neurology is consulted. HCT confirmed an acute-appearing L temporoparietal infarct....for which neurology is consulted.. Echo is notable for EF 35-40% as well as multiple segmental wall motion abnormalities ESR 22, RPR neg LDL 111 A1C 12.5 UDS neg MRI was attempted but cancelled by radiology dept d/t pt's body habitus. P: Agree w/ ASA/Lipitor daily for secondary stroke prevention for now Continued medical management and supportive care per primary ST as necessary Recommend open MRI as an outpatient Neurologically cleared for d/c Consultation Date/Type/Reason Admit Date/Time Nov 02, 2018 at 18:27 Type of Consult Neurology Reason for Consultation stroke Requesting Provider: STACI SANTOS Date/Time of Note DATE: 11/05/18 TIME: 14:47 24 HR Interval Summary Free Text/Dictation Continues acute care. Exam Vital Signs Vitals Vital Signs Date Temp Pulse Resp B/P (MAP) Pulse Ox O2 O2 Flow FiO2 Time Delivery Rate 11/05/18 74 12:16 11/05/18 98.4 18 126/76 91 11:36 (93) 11/02/18 Room Air 23:30 Intake and Output 11/04/18 11/04/18 11/05/18 1515:00 23:00 07:00 IntakeIntake Total 1700 ml OutputOutput Total 550 ml BalanceBalance 1150 ml Exam PE: Gen Appearance: No Apparent Distress HEENT: Normocephalic Cardiovascular: Regular rate Lungs: Clear bilaterally Abdomen: Soft Extremities: Dry NE: The patient was alert and oriented. Language is normal. Fund of knowledge was adequate. Pupils were equal and reactive to light. There was no afferent pupillary defect. Visual mcmullen were normal. Funduscopic examination was limited. Extra-ocular movements were full. Ptosis was absent. There was no nystagmus. Facial sensation was normal. Face was symmetric with normal strength. Hearing was intact. Palate movements were normal. Neck strength was normal. There was normal tongue bulk and speed of movement. Tone was normal. Muscle bulk was normal. I did not see fasciculations. Arms and legs were strong. Vibration sensation was normal. Temperature and pinprick sensation was normal. Rapid alternating movements were normal. There was no dysmetria. There was no intention tremor. Gait was deferred due to bedrest. Arm and leg reflexes were 2+ and symmetric. Landeros's sign was absent. Plantar responses were flexor THIAGO CARRERA NP November 05, 2018 14:48 TONIE GORMAN November 06, 2018 06:45
--- NOTE | 2018-11-05 16:00 | RADRPT ---
Vent Rate: 70 bpm RR Interval: 852 msec ME Interval: 185 msec QRS Duration: 168 msec QT Interval: 437 msec QTC Interval: 473 msec P-R-T Bois D Arc: -5 - -54 - 53 degrees Sinus rhythm...normal P axis, V-rate 50- 99 Right bundle branch block...QRSd>120, terminal axis(90,270) Inferior infarct, old...Q >35mS, II III aVF Anterior infarct, old...Q >40mS, abnormal ST-T, V2-V5 Electronically Signed By: Daniel Harrington
== END 2018-11-05 18:22 | disposition home or self-care (01) | DRG 65 ==
LOC: E/R 16:33 → 6WM 18:27
PROVIDERS: ADMIT Family Medicine; ATTEND Internal Medicine
DX: I63.9 Cerebral infarction, unspecified (principal); Z68.41 Body mass index [BMI] 40.0-44.9, adult; I42.9 Cardiomyopathy, unspecified; E11.65 Type 2 diabetes mellitus with hyperglycemia; I10 Essential (primary) hypertension; E66.01 Morbid (severe) obesity due to excess calories; I25.10 Atherosclerotic heart disease of native coronary artery without angina pectoris; F17.200 Nicotine dependence, unspecified, uncomplicated; Z79.4 Long term (current) use of insulin; Z79.82 Long term (current) use of aspirin; Z95.5 Presence of coronary angioplasty implant and graft
CPT/HCPCS: 36415; 70450; 70496; 70498; 71045; 80048; 80053; 80061; 80307; 81001; 82306; 82962; 83036; 83735; 83880; 84443; 84484; 85025; 85610; 85651; 85730; 86592; 92507; 92523; 92610; 93005; 93306; 97161; 97167; J1815; Q9967